=== PATIENT | female | born 1960 | race Caucasian/White ===

== ENCOUNTER 2017-07-25 07:44 | Emergency (ER) | payer OTHER, SELFPAY ==
[2017-07-25] MEDS ORDERED: Acetaminophen 325 MG Tab PO ONE (08:08)
--- NOTE | 2017-07-25 08:14 | EDM.PDOC ---
ED HPI GENERAL MEDICAL PROBLEM - General Chief Complaint: Head Injury Stated Complaint: HEAD INJURY/DUE TO FALL Time Seen by Provider: 07/25/17 08:01 Source of Information: Reports: Patient, RN Notes Reviewed - History of Present Illness INITIAL COMMENTS - FREE TEXT/NARRATIVE: 57-year-old female slipped on ice walking to work this morning about 1 hour ago. Her feet went out, she fell backwards striking the back of her head against the sidewalk. There was no LOC. She may have been dazed briefly. At this point she does have moderate headache, mild dizziness and very mild soreness of the TMJ area of her face that normally gives her trouble and away. She's had no nausea or vomiting. Slight neck stiffness. No chest back hip or other pain or injury from this incident. Headache Pain Score (Numeric/FACES): 7 - Related Data Allergies Allergy/AdvReac Type Severity Reaction Status Date / Time morphine Allergy Vomiting Verified 07/25/17 07:53 Home Meds: Home Meds Lamictal. 1 tab PO DAILY 07/25/17 [History] Lamictal. 1.5 tab PO BEDTIME 07/25/17 [History] ED ROS GENERAL - Review of Systems Review Of Systems: See Below Constitutional: Reports: No Symptoms HEENT: Reports: Other (She has an area of swelling posterior scalp). Denies: Ear Discharge, Vertigo, Vision Change Respiratory: Denies: Shortness of Breath Cardiovascular: Denies: Chest Pain GI/Abdominal: Denies: Abdominal Pain, Nausea, Vomiting Musculoskeletal: Denies: Neck Pain, Back Pain, Leg Pain, Joint Pain Skin: Reports: No Symptoms Neurological: Reports: Dizziness, Headache (Mild). Denies: Numbness (Mild/ moderate), Tingling, Trouble Speaking, Difficulty Walking, Weakness ED EXAM, HEAD INJURY - Physical Exam Exam: See Below General Appearance: Alert, No Apparent Distress Head: Scalp Swelling, Other (There is an area of mild swelling posterior scalp with very minimal localized tenderness). No: Scalp Lacerations, Scalp Abrasions , Woodward's Sign, Facial Swelling, Facial Tenderness Eyes: Bilateral Eye: PERRL Ears: Normal External Exam, Normal Canal Nose: Normal Inspection Throat/Mouth: Normal Inspection Respiratory: No Respiratory Distress, Lungs Clear, Normal Breath Sounds Cardiovascular: Regular Rate, Rhythm Back Exam: No: Paraspinal Tenderness, Vertebral Tenderness Extremities: Normal Inspection, Normal Range of Motion Neurologic: No Motor/Sensory Deficits, Normal Mood/Affect, Oriented x 3, Other ( [id number] testing normal) Skin: Normal Color, Warm/Dry Course - Vital Signs Last Recorded V/S: Last Vital Signs Temp 97.0 F 07/25/17 07:55 Pulse 71 07/25/17 07:55 Resp 16 07/25/17 07:55 BP 152/84 H 07/25/17 07:55 Pulse Ox 98 07/25/17 07:55 - Orders/Labs/Meds Orders: Active Orders 24 hr Category Date Time Status Acetaminophen [Tylenol] Med 07/25/17 08:08 Once 975 mg PO NOW ONE Medication Orders Acetaminophen (Tylenol) 975 mg PO NOW ONE Stop: 07/25/17 08:09 Meds: Medications Generic Name Dose Route Start Last Admin Trade Name Freq PRN Reason Stop Dose Admin Acetaminophen 975 mg 07/25/17 08:08 Tylenol PO 07/25/17 08:09 NOW ONE - Re-Assessments/Exams Free Text/Narrative Re-Assessment/Exam: 07/25/17 08:12 CT scan or x-rays not clinically indicated at this time Departure - Departure Time of Disposition: 08:12 Disposition: Home, Self-Care 01 Condition: Fair Clinical Impression: Concussion injury of brain - Discharge Information Referrals: PCP,None [Primary Care Provider] - Forms: ED Department Discharge, ED Return to Work/School Form Additional Instructions: The treatment for concussion is rest and time, off work today, no prolonged or severe exertional activity for about 1 week, increase activity slowly as tolerated. He should be well enough to return to work Thursday. You may alternate Tylenol and ibuprofen as needed for discomfort, return to ED if symptoms worsening in any way. - My Orders Last 24 Hours: My Active Orders 07/25/17 08:08 Acetaminophen [Tylenol] 975 mg PO NOW ONE - Assessment/Plan Last 24 Hours: My Active Orders 07/25/17 08:08 Acetaminophen [Tylenol] 975 mg PO NOW ONE
== END 2017-07-25 08:30 | disposition home or self-care (01) ==
LOC: JD.ED 07:44
DX: S06.0X0A Concussion without loss of consciousness, initial encounter (principal); Z79.899 Other long term (current) drug therapy; Z88.5 Allergy status to narcotic agent; W00.0XXA Fall on same level due to ice and snow, initial encounter; Y92.480 Sidewalk as the place of occurrence of the external cause
CPT/HCPCS: 99283; A9270

== ENCOUNTER 2018-03-03 10:39 | Day surgery (SDC) | payer BC ==
[~2018-03-03 10:39] MED LIST: Lactated Ringers 1,000 ML IV SCH; Lidocaine 1%/Sod Bicarbonate in NS 8.4% 1 ML Syringe IDERM PRN; Sodium Chloride 0.9% 10 ML Syringe FLUSH PRN
--- NOTE | 2018-03-03 12:00 | PCM.PREANE ---
Preanesthetic Assessment - Anesthesia/Transfusion/Family Hx Anesthesia History: Prior Anesthesia Without Reaction Family History of Anesthesia Reaction: No Transfusion History: No Prior Transfusion(s) - Review of Systems General: No Symptoms, Other (obesity) Pulmonary: No Symptoms Cardiovascular: No Symptoms Gastrointestinal: Other (GERD) Neurological: Seizure (epilepsy disorder, last seizure 6 years ago) Other: Reports: None - Physical Assessment NPO Status Date: 03/03/18 NPO Status Time: 10:00 Pulse: 59 O2 Sat by Pulse Oximetry: 98 Respiratory Rate: 20 Blood Pressure: 113/63 Vital Signs: Last Vital Signs Temp 36.6 C 03/03/18 10:55 Pulse 59 L 03/03/18 10:55 Resp 20 03/03/18 10:55 BP 113/63 03/03/18 10:55 Pulse Ox 98 03/03/18 10:55 Height: 1.57 m Weight: 95.254 kg ASA Class: 3 Mental Status: Alert & Oriented x3 Airway Class: Mallampati = 2 Dentition: Reports: Normal Dentition Thyro-Mental Finger Breadths: 3 Mouth Opening Finger Breadths: 3 ROM/Head Extension: Full Lungs: Clear to Auscultation, Normal Respiratory Effort Cardiovascular: Regular Rate, Regular Rhythm - Allergies Allergies/Adverse Reactions: Allergies Allergy/AdvReac Type Severity Reaction Status Date / Time morphine AdvReac Vomiting Verified 03/03/18 11:41 - Blood Blood Available: No Product(s) Available: None - Anesthesia Plan Pre-Op Medication Ordered: None - Acknowledgements Anesthesia Type Planned: MAC Pt an Appropriate Candidate for the Planned Anesthesia: Yes Alternatives and Risks of Anesthesia Discussed w Pt/Guardian: Yes Pt/Guardian Understands and Agrees with Anesthesia Plan: Yes PreAnesthesia Questionnaire Neurological History: Reports: Seizure - SUBSTANCE USE Smoking Status *Q: Never Smoker Recreational Drug Use History: No - HOME MEDS Home Medications: Home Meds Cholecalciferol (Vitamin D3) [Vitamin D3] 5,000 unit PO DAILY 03/02/18 [History] lamoTRIgine 200 mg PO QAM 03/02/18 [History] lamoTRIgine 300 mg PO QPM 03/02/18 [History] - CURRENT (IN HOUSE) MEDS Current Meds: Current Medications Lactated Ringer's (Ringers, Lactated) 1,000 mls @ 125 mls/hr IV ASDIRECTED SHA Stop: 03/03/18 23:00 Last Admin: 03/03/18 11:20 Dose: 125 mls/hr Lidocaine/Sodium Bicarbonate (Buffered Lidocaine 1% In Ns 8.4%) 0.25 ml IDERM ONETIME PRN PRN Reason: Prior to IV Start Stop: 03/03/18 18:00 Last Admin: 03/03/18 11:19 Dose: 0.25 ml Sodium Chloride (Saline Flush) 10 ml FLUSH ASDIRECTED PRN PRN Reason: Keep Vein Open Stop: 03/03/18 18:00
[2018-03-03] MEDS ORDERED: Propofol 200 MG/20 ML SDV ONE ×2 (12:43→13:37)
[2018-03-03] MEDS ORDERED: Lidocaine 1% 4 ML ONE (12:43)
[2018-03-03] MEDS ORDERED: fentaNYL 100 MCG/2 ML SDV ONE (12:44)
[2018-03-03] MEDS ORDERED: Lactated Ringers 1,000 ML ONE (13:11)
--- NOTE | 2018-03-03 13:49 | PCM.OPNOTE ---
- General Post-Op/Procedure Note Date of Surgery/Procedure: 03/03/18 Operative Procedure(s): colonoscopy with biopsy Findings: sigmoid colon polyp Pre Op Diagnosis: screening colonoscopy, average risk Post-Op Diagnosis: screening colonoscopy, average risk Anesthesia Technique: MAC Primary Surgeon: Wilton Chacon Anesthesia Provider: Roxann Rachel Pathology: sigmoid colon polyp Complications: None Condition: Good Free Text/Narrative:: Indications for surgery: The patient is 58 yo female, had a colonoscopy in 2004 , was told to repeat in 10 years. She is due for a repeat colonoscopy. The patient was consented for colonoscopy with possible biopsy. Indications, risks, and benefits were discussed with the patient in detail. Description of procedure: After surgical consent was verified, the patient was brought to the main OR. A surgical time-out was performed to verify proper patient and proper procedure. Anesthesia performed monitored anesthesia care. A digital rectal exam was performed, which was normal. The colonoscope was inserted into the anus and advanced through the colon to the cecum. Location of the cecum was confirmed by presence of the appendiceal orifice and by presence of the ileocecal valve. The scope was then withdrawn, with inspection of the colonic mucosa. Retroflexion was performed in the rectum. There was a 6 mm semi-pendunculated polyp in the sigmoid colon, removed by cold forceps polypectomy. The remainder of the colon and rectum was normal. Withdrawal time was 7 minutes , including time spent performing polypectomy. Blood loss was minimal. Prep was good. The patient tolerated the procedure well, was brought out of anesthesia, and transported to the PACU in stable condition. Wilton Chacon M.D., F.A.C.S. General Surgery Pager: [phone]
--- NOTE | 2018-03-03 13:51 | PCM48HPAN ---
Post Anesthesia Note - EVALUATION WITHIN 48HRS OF ANESTHETIC Vital Signs in Normal Range: Yes Patient Participated in Evaluation: Yes Respiratory Function Stable: Yes Airway Patent: Yes Cardiovascular Function Stable: Yes Hydration Status Stable: Yes Pain Control Satisfactory: Yes Nausea and Vomiting Control Satisfactory: Yes Mental Status Recovered: Yes Pulse Rate: 59 SaO2: 97 Resp Rate: 20 Temperature: 36.9 C Blood Pressure: 113/63 Pulse Rate: 60
== END 2018-03-03 14:26 | disposition home or self-care (01) ==
LOC: JD.SDS 10:39
PROVIDERS: ATTEND Student in an Organized Health Care Education/Training Program
DX: Z12.11 Encounter for screening for malignant neoplasm of colon (principal); K63.5 Polyp of colon; K21.9 Gastro-esophageal reflux disease without esophagitis; E55.9 Vitamin D deficiency, unspecified; Z88.5 Allergy status to narcotic agent; Z79.899 Other long term (current) drug therapy; Z98.890 Other specified postprocedural states; Z86.010 Personal history of colon polyps
CPT/HCPCS: 45380; J2704; J3010; J7120; 00811; J2001

== ENCOUNTER 2020-02-11 01:58 | Emergency (ER) | payer BC ==
[2020-02-11] MEDS ORDERED: Sodium Chloride 0.9% 1,000 ML IV SCH (02:15)
--- NOTE | 2020-02-11 02:41 | EDM.PDOC ---
ED HPI GENERAL MEDICAL PROBLEM - General Chief Complaint: Neurological Problem Stated Complaint: eufemia ambulance Time Seen by Provider: 02/11/20 02:20 Source of Information: Reports: Patient History Limitations: Reports: No Limitations - History of Present Illness INITIAL COMMENTS - FREE TEXT/NARRATIVE: This is a 60-year-old female. Last night she had an episode of the room spinning and dizziness that lasted just a short period of time. Yesterday during the day she did not seem to have a problem and then tonight it seemed to occur again wound 8:52 PM. She states when she gets up she is very incoordinated and staggers into the wall and attempted to sit down and nearly missed the chair. She complains of the room spinning about. She is also been having sweating spells and nausea and loss of appetite. Called the ambulance tonight and she comes to the ER evaluation. She has a history of seizures and she is on Lamictal. She says as long she stays on the Lamictal she does not have any seizures. When I explained to her that her symptoms of dizziness sweating nausea incoordination loss of appetite and headache can all be related to adverse effects of the Lamictal. She says she might of taken an extra dose but she was not certain exactly when she might of done this. No recent illnesses no colds no cough no congestion. - Related Data Allergies Allergy/AdvReac Type Severity Reaction Status Date / Time morphine AdvReac Severe Vomiting Verified 02/11/20 02:02 Home Meds: Home Meds lamoTRIgine 200 mg PO QAM 03/02/18 [History] lamoTRIgine 300 mg PO QPM 03/02/18 [History] Meclizine [Antivert] 25 mg PO Q6H PRN #20 tab 02/11/20 [Rx] cephALEXin [Keflex] 500 mg PO Q8H #21 cap 02/11/20 [Rx] Past Medical History Neurological History: Reports: Seizure - Past Surgical History Neurological Surgical History: Reports: Other (See Below) Other Neurological Surgeries/Procedures: frontal lobectomy Social & Family History - Tobacco Use Smoking Status *Q: Never Smoker - Caffeine Use Caffeine Use: Reports: Soda, Tea - Recreational Drug Use Recreational Drug Use: No ED ROS GENERAL - Review of Systems Review Of Systems: See Below Constitutional: Denies: Fever, Chills HEENT: Reports: No Symptoms Respiratory: Denies: Shortness of Breath, Cough Cardiovascular: Reports: No Symptoms Endocrine: Reports: No Symptoms GI/Abdominal: Reports: Nausea. Denies: Abdominal Pain, Diarrhea, Vomiting : Reports: No Symptoms Musculoskeletal: Reports: No Symptoms Skin: Reports: No Symptoms Neurological: Reports: Dizziness, Headache, Difficulty Walking, Other (Staggering) Psychiatric: Reports: No Symptoms Hematologic/Lymphatic: Reports: No Symptoms ED EXAM, NEURO - Physical Exam Exam: See Below Exam Limited By: No Limitations General Appearance: Alert, WD/WN, No Apparent Distress Eye Exam: Bilateral Eye: Nystagmus (Very faint nystagmus is noted) Ears: Normal External Exam Nose: Normal Inspection Throat/Mouth: Normal Inspection, Normal Lips, Normal Voice, No Airway Compromise Head Exam: Normocephalic, Other (When she changes the position of her head such as sitting up or lying down or turning left or right she has vertigo with the room spins) Neck: Supple. No: Carotid Bruit Respiratory/Chest: No Respiratory Distress, Lungs Clear, Normal Breath Sounds Cardiovascular: Regular Rate, Rhythm, No Murmur GI/Abdominal: Soft Neurological: Alert, Normal Mood/Affect, CN II-XII Intact, Oriented x 3 Back Exam: Full Range of Motion Extremities: Normal Inspection, Normal Range of Motion Psychiatric: Normal Affect, Normal Mood Skin Exam: Warm, Dry Course - Vital Signs Last Recorded V/S: Last Vital Signs Temp 98.7 F 02/11/20 01:59 Pulse 74 02/11/20 01:59 Resp 16 02/11/20 01:59 BP 134/68 02/11/20 01:59 Pulse Ox 97 02/11/20 01:59 - Orders/Labs/Meds Orders: Active Orders 24 hr Category Date Time Status Head wo Cont [CT] Stat Exams 02/11/20 02:14 Taken LAMOTRIGINE, SERUM [REF] Stat Lab 02/11/20 02:08 Received Sodium Chloride 0.9% [Normal Saline] 1,000 ml Med 02/11/20 02:15 Active IV ASDIRECTED cefTRIAXone [Rocephin] 1 gm Med 02/11/20 04:27 Active Sodium Chloride 0.9% [Normal Saline] 100 ml IV ONETIME EKG 12 Lead [EK] Stat Ther 02/11/20 02:25 Ordered Medication Orders Sodium Chloride (Normal Saline) 1,000 mls @ 1,000 mls/hr IV ASDIRECTED SHA Last Admin: 02/11/20 02:32 Dose: 1,000 mls/hr Documented by: TYRONE Ceftriaxone Sodium 1 gm/ (Sodium Chloride) 100 mls @ 200 mls/hr IV ONETIME ONE Stop: 02/11/20 04:56 Labs: Laboratory Tests 02/11/20 02/11/20 02/11/20 Range/Units 02:08 02:08 03:24 WBC 12.73 H (3.98-10.04) K/mm3 RBC 4.50 (3.98-5.22) M/mm3 Hgb 13.4 (11.2-15.7) gm/dl Hct 41.5 (34.1-44.9) % MCV 92.2 (79.4-94.8) fl MCH 29.8 (25.6-32.2) pg MCHC 32.3 (32.2-35.5) g/dl RDW Std Deviation 45.7 (36.4-46.3) fL Plt Count 192 (182-369) K/mm3 MPV 9.0 L (9.4-12.3) fl Neut % (Auto) 77.9 H (34.0-71.1) % Lymph % (Auto) 10.9 L (19.3-51.7) % [place] % (Auto) 10.1 (4.7-12.5) % Eos % (Auto) 0.5 L (0.7-5.8) Baso % (Auto) 0.3 (0.1-1.2) % Neut # (Auto) 9.91 H (1.56-6.13) K/mm3 Lymph # (Auto) 1.39 (1.18-3.74) K/mm3 [place] # (Auto) 1.29 H (0.24-0.36) K/mm3 Eos # (Auto) 0.06 (0.04-0.36) K/mm3 Baso # (Auto) 0.04 (0.01-0.08) K/mm3 Manual Slide Review Abnormal smear Sodium 137 (136-145) mEq/L Potassium 3.6 (3.5-5.1) mEq/L Chloride 102 (98-107) mEq/L Carbon Dioxide 25 (21-32) mEq/L Anion Gap 13.6 (5-15) BUN 14 (7-18) mg/dL Creatinine 0.8 (0.55-1.02) mg/dL Est Cr Clr Drug Dosing 60.31 mL/min Estimated GFR (MDRD) > 60 (>60) mL/min BUN/Creatinine Ratio 17.5 (14-18) Glucose 154 H (80-115) mg/dL Calcium 9.0 (8.5-10.1) mg/dL Total Bilirubin 0.7 (0.2-1.0) mg/dL AST 27 (15-37) U/L ALT 54 (14-59) U/L Alkaline Phosphatase 93 (46-116) U/L Total Protein 7.2 (6.4-8.2) g/dl Albumin 3.3 L (3.4-5.0) g/dl Globulin 3.9 gm/dL Albumin/Globulin Ratio 0.9 L (1-2) Urine Color Yellow (Yellow) Urine Appearance Cloudy H (Clear) Urine pH 6.0 (5.0-8.0) Ur Specific [place] 1.015 (1.005-1.030) Urine Protein 1+ H (Negative) Urine Glucose (UA) Negative (Negative) Urine Ketones 2+ H (Negative) Urine Occult Blood 2+ H (Negative) Urine Nitrite Negative (Negative) Urine Bilirubin Negative (Negative) Urine Urobilinogen 0.2 (0.2-1.0) Ur Leukocyte Esterase 1+ H (Negative) Urine RBC 5-10 H (0-5) /hpf Urine WBC 20-30 H (0-5) /hpf Urine WBC Clumps Moderate (NOT SEEN) /hpf Ur Squamous Epith Cells 0-5 (0-5) /hpf Urine Bacteria Many H (FEW) /hpf Urine Mucus Rare (FEW) /hpf Meds: Medications Generic Name Dose Route Start Last Admin Trade Name Freq PRN Reason Stop Dose Admin Sodium Chloride 1,000 mls @ 1,000 mls/hr 02/11/20 02:15 02/11/20 02:32 Normal Saline IV 1,000 mls/hr ASDIRECTED SHA Administration Ceftriaxone Sodium 1 gm/ 100 mls @ 200 mls/hr 02/11/20 04:27 Sodium Chloride IV 02/11/20 04:56 ONETIME ONE Discontinued Medications Generic Name Dose Route Start Last Admin Trade Name John PRN Reason Stop Dose Admin Diphenhydramine HCl 25 mg 02/11/20 03:09 02/11/20 03:24 Benadryl IVPUSH 02/11/20 03:10 25 mg ONETIME ONE Administration Lorazepam 0.5 mg 02/11/20 03:09 02/11/20 03:25 Ativan IVPUSH 02/11/20 03:10 0.5 mg ONETIME ONE Administration - Radiology Interpretation Free Text/Narrative:: CT scan of the head does not show any acute intracranial findings. - Re-Assessments/Exams Free Text/Narrative Re-Assessment/Exam: 02/11/20 04:29 I spoke to the patient regarding the urinary tract infection. The rest of her blood work looks within normal limits. Will not get the Lamictal level back for the next couple of days. She is to follow-up with her family doctor this coming week so they can recheck that Lamictal level and see what it is to see if this might be causing her symptoms. The patient has been up and down to the commode several times without assistance and seems to be feeling better. Departure - Departure Time of Disposition: 04:29 Disposition: Home, Self-Care 01 Condition: Fair Clinical Impression: Vertigo, Nausea, Lack of appetite, Nystagmus Urinary tract infection Qualifiers: Urinary tract infection type: site unspecified Hematuria presence: without hematuria Qualified Code(s): N39.0 - Urinary tract infection, site not specified - Discharge Information *PRESCRIPTION DRUG MONITORING PROGRAM REVIEWED*: Not Applicable *COPY OF PRESCRIPTION DRUG MONITORING REPORT IN PATIENT SIA: Not Applicable Prescriptions: Meclizine [Antivert] 25 mg PO Q6H PRN #20 tab PRN Reason: Dizziness cephALEXin [Keflex] 500 mg PO Q8H #21 cap Instructions: Urinary Tract Infection, Adult, [id number], Dizziness, Easy -to-Read Referrals: Livia Hernandez MD [Physician] - Forms: ED Department Discharge, ED Return to Work/School Form Additional Instructions: The Antivert as needed for the dizziness, take the Keflex faithfully 3 times a day for the urinary tract infection, drink lots of fluids, when you go to get up sit on the edge of the bed for a moment to make sure your head is not spinning and then stand but hang onto something to make sure your head is not spinning and once everything is stable start walking, follow-up with your family doctor this coming week so they can check that Lamictal level to make sure it is not too elevated and causing your side effects, return to the ER if needed Sepsis Event Note (ED) - Evaluation Sepsis Screening Result: No Definite Risk - Focused Exam Vital Signs: Vital Signs Temp Pulse Resp BP Pulse Ox 02/11/20 01:59 98.7 F 74 16 134/68 97 - My Orders Last 24 Hours: My Active Orders 02/11/20 02:08 LAMOTRIGINE, SERUM [REF] Stat 02/11/20 02:14 Head wo Cont [CT] Stat 02/11/20 02:15 Sodium Chloride 0.9% [Normal Saline] 1,000 ml IV ASDIRECTED 02/11/20 02:25 EKG 12 Lead [EK] Stat 02/11/20 04:27 cefTRIAXone [Rocephin] 1 gm Sodium Chloride 0.9% [Normal Saline] 100 ml IV ONETIME - Assessment/Plan Last 24 Hours: My Active Orders 02/11/20 02:08 LAMOTRIGINE, SERUM [REF] Stat 02/11/20 02:14 Head wo Cont [CT] Stat 02/11/20 02:15 Sodium Chloride 0.9% [Normal Saline] 1,000 ml IV ASDIRECTED 02/11/20 02:25 EKG 12 Lead [EK] Stat 02/11/20 04:27 cefTRIAXone [Rocephin] 1 gm Sodium Chloride 0.9% [Normal Saline] 100 ml IV ONETIME
[2020-02-11] MEDS ORDERED: LORazepam 2 MG/ML SDV IVPUSH ONE (03:09)
[2020-02-11] MEDS ORDERED: diphenhydrAMINE 50 MG/ML SDV IVPUSH ONE (03:09)
[2020-02-11] MEDS ORDERED: cefTRIAXone 1 GM in Sodium Chloride 0.9% 100 ML IV ONE (04:27)
--- NOTE | 2020-02-11 09:18 | CT ---
Head CT Technique: Multiple axial sections through the brain were obtained. Intravenous contrast was not utilized. Comparison: No prior intracranial imaging is available. Findings: Low-density area noted within the inferior right frontal region. Adjacent craniotomy is seen in this area. No other abnormal parenchymal densities are seen. No evidence of intracranial hemorrhage. No midline shift or mass-effect is appreciated. Hyperdense vertebral artery is seen most likely due to hemoconcentration from dehydration. Bone window settings were reviewed which shows previous craniotomy and bur hole formation. No acute calvarial abnormality is appreciated. Visualized mastoid sinuses and paranasal sinuses show nothing acute. Impression: 1. 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 Please correlate as to etiology. This finding appears to be chronic. 2. No acute intracranial abnormality is appreciated. 3. Slightly hyperdense vertebral artery believed to be normal variant as described above. Note: If patient's symptoms warrant further evaluation, MRI study could be considered. Diagnostic code #2 This report was dictated in MDT I agree with preliminary report from [facility], finalized on 02/11/20, 3:55 AM Central Daylight Time
== END 2020-02-11 05:16 | disposition home or self-care (01) ==
LOC: JD.ED 01:58
DX: N39.0 Urinary tract infection, site not specified (principal); R42 Dizziness and giddiness; R11.0 Nausea; R63.0 Anorexia; H55.00 Unspecified nystagmus; Z88.5 Allergy status to narcotic agent; Z79.899 Other long term (current) drug therapy
CPT/HCPCS: 70450; 80053; 80175; 81001; 85025; 93005; 96361; 96365; 96375; 99285; J0696; J1200; J2060; J7030; J7050; 36415; 93010; 99284

== ENCOUNTER 2020-02-18 07:26 | Emergency (ER) | payer BC ==
--- NOTE | 2020-02-18 07:54 | EDM.PDOC ---
ED HPI GENERAL MEDICAL PROBLEM - General Chief Complaint: Neurological Problem Stated Complaint: SEIZURES/HX OF SEIZURE/MEDS NOT HELPING Time Seen by Provider: 02/18/20 07:51 Source of Information: Reports: Patient History Limitations: Reports: No Limitations - History of Present Illness INITIAL COMMENTS - FREE TEXT/NARRATIVE: 60-year-old female presents to the ED with increased petit mall seizures this morning. 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 She states in high school she could have up to 22 seizures a day. Since the surgery was carried out she has petit mall seizures lasting anywhere from 10 to 20 seconds. This usually means staring off into space feeling scared and tremulous. This morning she is already had 5 breakthrough seizures. She is on Lamictal 200 mg in the morning and 300 mg in the p.m. She has not missed any doses of her medication. No recent falls or closed head injuries. She was started on meclizine 25 mg 3 times daily a week ago for vertigo-like symptoms which may have lowered his seizure threshold. However she is not had any breakthrough seizures in the week that she is been on the medication. Denies any headache at this point time. Otherwise feels pretty well back to her normal self. She did have a urinary tract infection a week ago and is completed antibiotics in this regard. She indicates that in about 2010 her Lamictal was increased from 200 twice daily to 200 in the morning and 300 mg in the evening. Onset: Today Onset Date: 02/18/20 (Claims to have had 5 petit mall seizures this morning.) Duration: Other (Seizures last seconds usually less than 10 to 15 seconds.) Location: Reports: Other (Petit mall seizures which involve staring off into space feeling scared and frightened and tremulous.) Quality: Reports: Other Severity: Moderate (As above) Improves with: Reports: None Worsens with: Reports: None Context: Denies: Activity, Exercise, Lifting, Sick Contact, Trauma, Other Associated Symptoms: Denies: No Other Symptoms, Confusion, Chest Pain, Cough, cough w sputum, Diaphoresis, Fever/Chills, Headaches, Loss of Appetite, Malaise, Nausea/Vomiting, Seizure, Shortness of Breath, Syncope, Weakness, Other 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) (She did take her normal medication this morning.) - Related Data Allergies Allergy/AdvReac Type Severity Reaction Status Date / Time morphine AdvReac Severe Vomiting Verified 02/18/20 07:42 Home Meds: Home Meds lamoTRIgine 200 mg PO QAM 03/02/18 [History] lamoTRIgine 300 mg PO QPM 03/02/18 [History] Meclizine [Antivert] 25 mg PO Q6H PRN #20 tab 02/11/20 [Rx] cephALEXin [Keflex] 500 mg PO Q8H #21 cap 02/11/20 [Rx] lamoTRIgine [Lamictal] 100 mg PO BID #15 tablet 02/18/20 [Rx] Past Medical History Neurological History: Reports: Seizure, Other (See Below) (Patient has a previous left frontal lobectomy carried out due to seizure mariana coming from the frontal lobe. 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[employer]) ED [facility] GENERAL - Review of Systems Review Of Systems: See Below Constitutional: Denies: Fever, Chills, Malaise, Weakness, Fatigue, Decreased Appetite, Weight Loss HEENT: Reports: Glasses Respiratory: Reports: No Symptoms Cardiovascular: Reports: No Symptoms Endocrine: Reports: No Symptoms GI/Abdominal: Reports: No Symptoms : Reports: Other (Feels her urinary tract symptoms have resolved with medication.) Musculoskeletal: Reports: No Symptoms Skin: Reports: No Symptoms Neurological: Reports: Other (Recurrent petit mall seizures.) Psychiatric: Reports: Anxiety Hematologic/Lymphatic: Reports: No Symptoms - Physical Exam Exam: See Below Exam Limited By: No Limitations General Appearance: Alert, WD/WN, Anxious, Other (Mildly anxious. Temperature is 36.1 with a heart rate of 81 respiratory 16 BP 156/79 pulse ox 97% room air) Eye Exam: Bilateral Eye: Normal Inspection, PERRL Throat/Mouth: Normal Inspection, Normal Lips, Normal Oropharynx, Other Head Exam: Atraumatic, Normocephalic Neck: Normal Inspection, Supple, Non-Tender, Full Range of Motion. No: Carotid Bruit, Lymphadenopathy (L), Lymphadenopathy (R) Respiratory/Chest: No Respiratory Distress, Lungs Clear, Normal Breath Sounds, No Accessory Muscle Use, Chest Non-Tender Neuro Exam (Abbreviated): Alert, Oriented, CN II-XII Intact, Normal Cognition, Normal Gait DTR: 1+: Achilles (R), Achilles (L), 2+: Bicep (R), Bicep (L), Patella (R), Patella (L) Back Exam: Normal Inspection, Full Range of Motion Extremities: Normal Inspection, Normal Range of Motion, Non-Tender Psychiatric: Normal Affect, Anxious Skin Exam: Warm, Dry (Mildly anxious.), Intact, Normal Color, No Rash Course - Vital Signs Last Recorded V/S: Last Vital Signs Temp 36.1 C 02/18/20 07:38 Pulse 81 02/18/20 07:38 Resp 16 02/18/20 07:38 BP 156/79 H 02/18/20 07:38 Pulse Ox 97 02/18/20 07:38 - Orders/Labs/Meds Orders: Active Orders 24 hr Category Date Time Status LAMOTRIGINE, SERUM [REF] Stat Lab 02/18/20 08:24 Received lamoTRIgine Med 02/18/20 09:19 Once 100 mg PO ONETIME ONE Labs: Laboratory Tests 02/18/20 02/18/20 02/18/20 Range/Units 08:24 08:24 08:24 WBC 5.46 (3.98-10.04) K/mm3 RBC 4.81 (3.98-5.22) M/mm3 Hgb 14.3 (11.2-15.7) gm/dl Hct 44.3 (34.1-44.9) % MCV 92.1 (79.4-94.8) fl MCH 29.7 (25.6-32.2) pg MCHC 32.3 (32.2-35.5) g/dl RDW Std Deviation 44.6 (36.4-46.3) fL Plt Count 273 D (182-369) K/mm3 MPV 8.9 L (9.4-12.3) fl Neut % (Auto) 69.6 (34.0-71.1) % Lymph % (Auto) 19.8 (19.3-51.7) % [place] % (Auto) 4.9 (4.7-12.5) % Eos % (Auto) 3.7 (0.7-5.8) Baso % (Auto) 1.5 H (0.1-1.2) % Neut # (Auto) 3.80 (1.56-6.13) K/mm3 Lymph # (Auto) 1.08 L (1.18-3.74) K/mm3 [place] # (Auto) 0.27 (0.24-0.36) K/mm3 Eos # (Auto) 0.20 (0.04-0.36) K/mm3 Baso # (Auto) 0.08 (0.01-0.08) K/mm3 Sodium 139 (136-145) mEq/L Potassium 3.9 (3.5-5.1) mEq/L Chloride 104 (98-107) mEq/L Carbon Dioxide 28 (21-32) mEq/L Anion Gap 10.9 (5-15) BUN 15 (7-18) mg/dL Creatinine 0.9 (0.55-1.02) mg/dL Est Cr Clr Drug Dosing 53.61 mL/min Estimated GFR (MDRD) > 60 (>60) mL/min BUN/Creatinine Ratio 16.7 (14-18) Glucose 133 H (80-115) mg/dL Calcium 8.9 (8.5-10.1) mg/dL Magnesium 2.1 (1.8-2.4) mg/dl Total Bilirubin 0.3 (0.2-1.0) mg/dL AST 71 H (15-37) U/L ALT 111 H (14-59) U/L Alkaline Phosphatase 107 (46-116) U/L Total Protein 7.6 (6.4-8.2) g/dl Albumin 3.3 L (3.4-5.0) g/dl Globulin 4.3 gm/dL Albumin/Globulin Ratio 0.8 L (1-2) TSH 3rd Generation 2.055 (0.358-3.74) uIU/mL Urine Color (Yellow) Urine Appearance (Clear) Urine pH (5.0-8.0) Ur Specific [place] (1.005-1.030) Urine Protein (Negative) Urine Glucose (UA) (Negative) Urine Ketones (Negative) Urine Occult Blood (Negative) Urine Nitrite (Negative) Urine Bilirubin (Negative) Urine Urobilinogen (0.2-1.0) Ur Leukocyte Esterase (Negative) Urine RBC (0-5) /hpf Urine WBC (0-5) /hpf Ur Squamous Epith Cells (0-5) /hpf Urine Bacteria (FEW) /hpf Urine Mucus (FEW) /hpf 02/18/20 Range/Units 08:30 WBC (3.98-10.04) K/mm3 RBC (3.98-5.22) M/mm3 Hgb (11.2-15.7) gm/dl Hct (34.1-44.9) % MCV (79.4-94.8) fl MCH (25.6-32.2) pg MCHC (32.2-35.5) g/dl RDW Std Deviation (36.4-46.3) fL Plt Count (182-369) K/mm3 MPV (9.4-12.3) fl Neut % (Auto) (34.0-71.1) % Lymph % (Auto) (19.3-51.7) % [place] % (Auto) (4.7-12.5) % Eos % (Auto) (0.7-5.8) Baso % (Auto) (0.1-1.2) % Neut # (Auto) (1.56-6.13) K/mm3 Lymph # (Auto) (1.18-3.74) K/mm3 [place] # (Auto) (0.24-0.36) K/mm3 Eos # (Auto) (0.04-0.36) K/mm3 Baso # (Auto) (0.01-0.08) K/mm3 Sodium (136-145) mEq/L Potassium (3.5-5.1) mEq/L Chloride (98-107) mEq/L Carbon Dioxide (21-32) mEq/L Anion Gap (5-15) BUN (7-18) mg/dL Creatinine (0.55-1.02) mg/dL Est Cr Clr Drug Dosing mL/min Estimated GFR (MDRD) (>60) mL/min BUN/Creatinine Ratio (14-18) Glucose (80-115) mg/dL Calcium (8.5-10.1) mg/dL Magnesium (1.8-2.4) mg/dl Total Bilirubin (0.2-1.0) mg/dL AST (15-37) U/L ALT (14-59) U/L Alkaline Phosphatase (46-116) U/L Total Protein (6.4-8.2) g/dl Albumin (3.4-5.0) g/dl Globulin gm/dL Albumin/Globulin Ratio (1-2) TSH 3rd Generation (0.358-3.74) uIU/mL Urine Color Light yellow (Yellow) Urine Appearance Clear (Clear) Urine pH 7.0 (5.0-8.0) Ur Specific [place] 1.015 (1.005-1.030) Urine Protein Negative (Negative) Urine Glucose (UA) Negative (Negative) Urine Ketones Negative (Negative) Urine Occult Blood Negative (Negative) Urine Nitrite Negative (Negative) Urine Bilirubin Negative (Negative) Urine Urobilinogen 0.2 (0.2-1.0) Ur Leukocyte Esterase Negative (Negative) Urine RBC 0-5 (0-5) /hpf Urine WBC 0-5 (0-5) /hpf Ur Squamous Epith Cells 0-5 (0-5) /hpf Urine Bacteria Few (FEW) /hpf Urine Mucus Rare (FEW) /hpf - Radiology Interpretation Free Text/Narrative:: 60-year-old female presents to the ED with breakthrough petit mall seizures x5 this morning. She has a history of petit mall seizures since having a left frontal lobectomy carried out in 2006 in [place]. 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 She states that she would have up to 22 seizures a day while in high school. Since surgery she has had very few seizures. She tends to have petit mall seizures which means staring off into space feeling very scared and tremulous with no loss of consciousness. These usually last 10 to 15 seconds. Unfortunately she has had 5 breakthrough petit mal seizure this morning which is making it difficult for her to try and go to work. He is on fairly high doses of Lamictal 200 mg in the morning and 300 mg in the evening. Plan will be to have routine labs performed. Then discussed case with neurologist and see if there is a alternative treatment. - Re-Assessments/Exams Free Text/Narrative Re-Assessment/Exam: 02/18/20 08:[address] Hernandez neurologist at [facility] in [place] and he agrees with that she is not toxic or showing any toxic signs from current dosage of Lamictal it may be worth a try to increase it to 300 mg twice daily. I have sent out her Lamictal level for testing but it is a reference drug and will likely be 3 to 4 days before we see an answer. Await her lab tests at present time. 02/18/20 08:50 White count is 5.46 with auto differential showing 670% neutrophils. Hemoglobin is 14.3 with hematocrit of 44.3. Platelet counts 273,000. Urinalysis shows it to be clear with no signs of infection. 02/18/20 09:14 Odium 139 with a potassium of 3.9. Chloride 104 with a bicarb of 28. Anion gap is 10.9. BUN is 15 with a creatinine of 0.9. GFR is greater than 60. Glucose is 133 calcium is 8.9 magnesium is 2.1 total bilirubin is 0.3 AST is 71 with an ALT of 111. Alk phos stays normal at 107. Total protein is 7.6 with an albumin fraction slightly low at 3.3. TSH is 2.055 which is in the normal range. 02/18/20 09:19 I have discussed the patient's lab results with her. Nothing untoward was identified and low back laboratory testing. Plan will be to increase her Lamictal to 300 mg in the morning and 300 mg in the evening. Typically she takes 1 100 mg tablet with a 200 mg tablet so as not to have to break them in half. I will therefore write a prescription for the 100 mg tablets x10 until we see what her reference Lamictal level is and can make suitable adjustments based on that. Patient will be given a note to excuse her from work today tentatively she may return to work tomorrow Departure - Departure Time of Disposition: 09:20 Disposition: Home, Self-Care 01 Condition: Fair Clinical Impression: Breakthrough seizure, Petit mal seizure status - Discharge Information *PRESCRIPTION DRUG MONITORING PROGRAM REVIEWED*: Not Applicable *COPY OF PRESCRIPTION DRUG MONITORING REPORT IN PATIENT SIA: Not Applicable Prescriptions: lamoTRIgine [Lamictal] 100 mg PO BID #15 tablet Referrals: Livia Hernandez MD [Primary Care Provider] - Forms: ED Department Discharge, ED Return to Work/School Form Additional Instructions: Evaluation in the emergency room this morning in regards to breakthrough petit mall seizures x5 already this morning. No recent changes in antiseizure medication dosage. Recent illness with vertigo symptoms and I would suggest no further use of meclizine in case it is interacting with current antiseizure medication. It is the suggestion of Dr. Hernandez neurologist at [facility] to increase your current Lamictal dosage to 300 mg twice daily. This will need an extra 100 mg dose in the morning. First dose was given in the ED today. Prescription written for 10 tablets of Lamictal 100 mg dosage. Your current Lamictal level in your bloodstream was sent out for evaluation and should be back on Thursday or Thursday next week which will help us decide on appropriate dosing of this medication since you are already on higher normal doses of Lamictal. Just calling us Dr. Livia Hernandez on Thursday or next week as she should obtain the levels of the Lamictal send out levels. Sepsis Event Note (ED) - Evaluation Sepsis Screening Result: No Definite Risk - Focused Exam Vital Signs: Vital Signs Temp Pulse Resp BP Pulse Ox 02/18/20 07:38 36.1 C 81 16 156/79 H 97 - My Orders Last 24 Hours: My Active Orders 02/18/20 08:24 LAMOTRIGINE, SERUM [REF] Stat 02/18/20 09:19 lamoTRIgine 100 mg PO ONETIME ONE - Assessment/Plan Last 24 Hours: My Active Orders 02/18/20 08:24 LAMOTRIGINE, SERUM [REF] Stat 02/18/20 09:19 lamoTRIgine 100 mg PO ONETIME ONE
[2020-02-18] MEDS ORDERED: lamoTRIgine 100 MG Tab PO ONE (09:19)
[2020-02-18] MEDS ORDERED: lamoTRIgine 100 MG Tab PO STA (09:36)
== END 2020-02-18 09:45 | disposition home or self-care (01) ==
LOC: JD.ED 07:26
DX: G40.A09 Absence epileptic syndrome, not intractable, without status epilepticus (principal); Z88.5 Allergy status to narcotic agent; Z79.899 Other long term (current) drug therapy
CPT/HCPCS: 80053; 80175; 81001; 83735; 84443; 85025; 99284; A9270; 36415

== ENCOUNTER 2021-04-15 21:26 | Emergency (ER) | payer OTHER ==
[2021-04-15] MEDS ORDERED: Ondansetron 4 MG/2 ML SDV IVPUSH ONE (22:07)
[2021-04-15] MEDS ORDERED: Lactated Ringers 1,000 ML IV ONE (22:10)
--- NOTE | 2021-04-15 22:13 | EDM.PDOC ---
ED HPI GENERAL MEDICAL PROBLEM - General Chief Complaint: Neurological Problem Stated Complaint: SEIZURE Time Seen by Provider: 04/15/21 22:00 Source of Information: Reports: Patient History Limitations: Reports: No Limitations - History of Present Illness INITIAL COMMENTS - FREE TEXT/NARRATIVE: Patient is a 61-year-old female with a past medical history of seizure disorder presenting with chief complaint of numerous seizures throughout the day. Patient states she has had a cold for the past few days and been using Sudafed. She states she thinks this has interacted with her Lamictal leading her to having more seizures. She states she stopped the Sudafed 2 days ago but today has noticed numerous seizures throughout the day. She describes them as twitching in her head last for just a few seconds. She states the last time this happened was in February 2020 for which she presented here. Otherwise, she has been stable on her current seizure medication. Patient took her Lamictal this evening and has felt somewhat better. Patient states she continues to feel somewhat dizzy right now as well as dehydrated. She states her mouth is dry. Patient denies any falls or injuries. Had a COVID-19 test this morning which was negative. - Related Data Allergies Allergy/AdvReac Type Severity Reaction Status Date / Time meclizine Allergy Other Verified 04/19/21 09:17 morphine AdvReac Mild Vomiting Verified 04/19/21 09:17 Home Meds: Home Meds lamoTRIgine 200 mg PO QAM 03/02/18 [History] lamoTRIgine 300 mg PO QPM 03/02/18 [History] Ondansetron [Zofran ODT] 4 mg PO Q6H PRN #20 tab.dis 04/19/21 [Rx] diazePAM [Valium] 1 mg PO BID PRN #20 tab 04/19/21 [Rx] dimenhyDRINATE [Dramamine] 25 mg PO Q6H PRN 04/19/21 [History] Past Medical History HEENT History: Reports: Impaired Vision Other HEENT History: glasses Cardiovascular History: Reports: None Gastrointestinal History: Reports: GERD Other Genitourinary History: bladder leakage x 2 years 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: Neurological History: Reports: Seizure, Vertigo, Other (See Below) Endocrine/Metabolic History: Reports: None Hematologic History: Reports: None Immunologic History: Reports: None Oncologic (Cancer) History: Reports: None Other Dermatologic History: left arm tumor removed - Infectious Disease History Infectious Disease History: Reports: Chicken Pox, Shingles - Past Surgical History Head Surgeries/Procedures: Reports: None Other HEENT Surgeries/Procedures: trachotomy at 2 yrs of age Neurological Surgical History: Reports: Other (See Below) Other Neurological Surgeries/Procedures: frontal lobectomy Social & Family History - Caffeine Use Caffeine Use: Reports: None - Recreational Drug Use Recreational Drug Use: No - Living Situation & Occupation Living situation: Reports: Single 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[employer]) ED ROS GENERAL - Review of Systems Review Of Systems: See Below Free Text/Narrative/Comment: In addition to that documented in the HPI above, the additional ROS was obtained: Constitutional: Denies fevers or chills Eyes: Denies vision changes ENMT: Denies sore throat CV: Denies chest pain Resp: Denies SOB GI: Denies vomiting or diarrhea : Denies painful urination MSK: Denies recent trauma Skin: Denies new rashes Neuro: Denies new numbness or tingling or weakness Endocrine: Denies unexpected weight loss Heme: Denies bleeding disorders - Physical Exam Exam: See Below Text/Narrative:: I have reviewed the triage vital signs Const: Well nourished, well developed, appears stated age Eyes: Pupils Equal and reactive to light bilaterally, no conjunctival injection HENT: No signs of trauma or swelling, Neck supple without meningismus CV: Regular Rate Rhythm, Warm, well-perfused extremities RESP: Unlabored respiratory effort GI: soft, non-tender, non-distended, no masses MSK: No gross deformities appreciated Skin: Warm, dry. No rashes Neuro: Alert, escrow closer II-XII grossly intact. Sensation and motor function of extremities grossly intact. Psych: Appropriate mood and affect. Course - Vital Signs Last Recorded V/S: Last Vital Signs Temp 37.6 C 04/15/21 21:36 Pulse 75 04/15/21 21:36 Resp 18 04/15/21 21:36 BP 121/62 04/15/21 21:36 Pulse Ox 94 L 04/15/21 21:36 - Orders/Labs/Meds Labs: Laboratory Tests 04/15/21 04/15/21 04/15/21 Range/Units 21:45 21:45 21:45 WBC 4.17 (3.98-10.04) K/mm3 RBC 4.68 (3.98-5.22) M/mm3 Hgb 14.3 (11.2-15.7) gm/dl Hct 42.9 (34.1-44.9) % MCV 91.7 (79.4-94.8) fl MCH 30.6 (25.6-32.2) pg MCHC 33.3 (32.2-35.5) g/dl RDW Std Deviation 44.9 (36.4-46.3) fL Plt Count 112 L D (182-369) K/mm3 MPV 10.1 (9.4-12.3) fl Neut % (Auto) 64.0 (34.0-71.1) % Lymph % (Auto) 23.3 (19.3-51.7) % [place] % (Auto) 12.0 (4.7-12.5) % Eos % (Auto) 0.2 L (0.7-5.8) Baso % (Auto) 0.5 (0.1-1.2) % Neut # (Auto) 2.67 (1.56-6.13) K/mm3 Lymph # (Auto) 0.97 L (1.18-3.74) K/mm3 [place] # (Auto) 0.50 H (0.24-0.36) K/mm3 Eos # (Auto) 0.01 L (0.04-0.36) K/mm3 Baso # (Auto) 0.02 (0.01-0.08) K/mm3 Sodium 135 L (136-145) mEq/L Potassium 3.5 (3.5-5.1) mEq/L Chloride 99 (98-107) mEq/L Carbon Dioxide 25 (21-32) mEq/L Anion Gap 14.5 (5-15) BUN 9 (7-18) mg/dL Creatinine 0.7 (0.55-1.02) mg/dL Est Cr Clr Drug Dosing 68.05 mL/min Estimated GFR (MDRD) > 60 (>60) mL/min BUN/Creatinine Ratio 12.9 L (14-18) Glucose 128 H (70-99) mg/dL Calcium 8.0 L (8.5-10.1) mg/dL Total Bilirubin 0.3 (0.2-1.0) mg/dL AST 31 (15-37) U/L ALT 43 (14-59) U/L Alkaline Phosphatase 83 (46-116) U/L Total Protein 7.2 (6.4-8.2) g/dl Albumin 3.4 (3.4-5.0) g/dl Globulin 3.8 gm/dL Albumin/Globulin Ratio 0.9 L (1-2) Lamotrigine 12.7 (2.0-20.0) ug/mL Meds: Medications Discontinued Medications Generic Name Dose Route Start Last Admin Trade Name Freq PRN Reason Stop Dose Admin Lactated Ringer's 1,000 mls @ 1,000 mls/hr 04/15/21 22:10 04/15/21 22:21 Ringers, Lactated IV 04/15/21 23:09 1,000 mls/hr .BOLUS ONE Administration Ondansetron HCl 4 mg 04/15/21 22:07 04/15/21 22:21 Ondansetron 4 Mg/2 Ml Sdv IVPUSH 04/15/21 22:08 4 mg ONETIME ONE Administration Departure - Departure Time of Disposition: 00:17 Disposition: Home, Self-Care 01 Clinical Impression: Petit mal seizure status, Vertigo - Discharge Information Instructions: Vertigo, [id number], Seizure, Adult, [id number] Referrals: Livia Hernandez MD [Primary Care Provider] - Forms: ED Department Discharge, ED Return to Work/School Form - Assessment/Plan Assessment:: Patient is 61-year-old female presenting to the emergency room with a chief complaint of seizures. Patient conversant and not demonstrating any neurologic deficits during the emergency department stay. Patient seizure symptoms were minor in nature and she states they did not occur while in the emergency room here. Seem to have stopped after taking her evening dose of Lamictal. Work-up in the emergency room include laboratory studies and head CT. These all returned without significant abnormality. Patient complaining of some mild dizziness which did improve with IV fluids. Patient walking with steady gait. At this point, patient is stable for discharge and outpatient follow-up. Lamotrigine level sent for outpatient reference lab which will be back in a few days. Differential diagnosis considered for this patient include seizure, cerebellar stroke, electrolyte abnormality, intracranial hemorrhage. Patient agrees with this plan. Return precautions given as usual. All questions answered and addressed.
--- NOTE | 2021-04-16 07:26 | CT ---
Head CT Technique: Multiple axial sections through the brain were obtained. Intravenous contrast was not utilized. Reconstructed coronal and sagittal images were obtained. Comparison: Prior head CT study of 02/11/20. Findings: Stable area of encephalomalacia is noted within the right frontal lobe. Bone window settings show previous surgery within craniotomy on the right side. Ventricles along with basal cisterns and sulci over the convexities are within normal limits. No abnormal parenchymal densities are seen. No evidence of intracranial hemorrhage is seen. No midline shift or mass-effect is seen. Bone window settings were reviewed which show additional surgery within the left temporal region. No acute calvarial abnormality is appreciated. Visualized mastoid sinuses and paranasal sinuses show nothing acute. Impression: 1. Prior surgery within both sides of the calvarium. 2. Stable area of encephalomalacia within the right frontal lobe. 3. No acute intracranial abnormality is seen. No change from prior head CT study is seen. Diagnostic code #2 I agree with preliminary report from [facility], finalized on 04/16/21, 12:49 AM CDT, code 1
== END 2021-04-16 00:54 | disposition home or self-care (01) ==
LOC: JD.ED 21:26
DX: G40.A09 Absence epileptic syndrome, not intractable, without status epilepticus (principal); R42 Dizziness and giddiness; Z88.8 Allergy status to other drugs, medicaments and biological substances; Z88.5 Allergy status to narcotic agent
CPT/HCPCS: 36415; 70450; 80053; 80175; 85025; 96374; 99284; J2405; J7120

== ENCOUNTER 2021-04-17 06:25 | Emergency (ER) | payer OTHER ==
[2021-04-17] MEDS ORDERED: Sodium Chloride 0.9% 10 ML Syringe FLUSH PRN (07:49)
[2021-04-17] MEDS ORDERED: Ondansetron 4 MG/2 ML SDV IVPUSH ONE (07:49)
[2021-04-17] MEDS ORDERED: Sodium Chloride 0.9% 1,000 ML IV SCH (08:00)
--- NOTE | 2021-04-17 10:30 | EDM.PDOC ---
ED HPI GENERAL MEDICAL PROBLEM - General Chief Complaint: General Stated Complaint: eufemia amb Time Seen by Provider: 04/17/21 07:20 Source of Information: Reports: Patient, RN Notes Reviewed - History of Present Illness INITIAL COMMENTS - FREE TEXT/NARRATIVE: 61 yr old female comes in with dizziness, vertigo of about 3 day duration. She did test covid positive just yesterday but has had sx for about 13 days. She has had nausea, decreased appetite, low energy. Very occasional cough only. No [place], recent fever or difficulty breathing. 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: Neurological History: Reports: Seizure, Vertigo, Other (See Below) Endocrine/Metabolic History: Reports: None Hematologic History: Reports: None Immunologic History: Reports: None Oncologic (Cancer) History: Reports: None Other Dermatologic History: left arm tumor removed - Infectious Disease History Infectious Disease History: Reports: Chicken Pox, Novel Coronavirus, Shingles - Past Surgical History Head Surgeries/Procedures: Reports: None Other HEENT Surgeries/Procedures: trachotomy at 2 yrs of age Neurological Surgical History: Reports: Other (See Below) Other Neurological Surgeries/Procedures: frontal lobectomy Social & Family History - Tobacco Use Tobacco Use Status *Q: Never Tobacco User Second Hand Smoke Exposure: No - Caffeine Use Caffeine Use: Reports: None - Recreational Drug Use Recreational Drug Use: No - Living Situation & Occupation Living situation: Reports: Single 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 Denies: Fever HEENT: Denies: Rhinitis, Throat Pain Respiratory: Reports: Cough. Denies: Shortness of Breath Cardiovascular: Denies: Chest Pain Endocrine: Reports: Fatigue GI/Abdominal: Reports: Nausea, Vomiting. Denies: Abdominal Pain Musculoskeletal: Denies: Joint Pain Skin: Denies: Rash Neurological: Reports: Dizziness, Weakness (mild generalized). Denies: Headache ED EXAM, GENERAL - Physical Exam Exam: See Below General Appearance: Alert, No Apparent Distress Head: Atraumatic Neck: Supple Respiratory/Chest: No Respiratory Distress, Lungs Clear, Normal Breath Sounds. No: Rales, Rhonchi, Wheezing GI/Abdominal: Soft, Non-Tender Extremities: Normal Inspection. No: Pedal Edema, Leg Pain Neurological: Alert, Oriented, No Motor/Sensory Deficits Skin Exam: Warm, Dry, Normal Color Course - Vital Signs Last Recorded V/S: Last Vital Signs Temp 97.6 F 04/17/21 06:34 Pulse 60 04/17/21 06:34 Resp 20 04/17/21 06:34 BP 122/63 04/17/21 06:34 Pulse Ox 90 L 04/17/21 06:34 - Orders/Labs/Meds Orders: Active Orders 24 hr Category Date Time Status Peripheral IV Care [RC] . DIRECTED Care 04/17/21 07:49 Active Sodium Chloride 0.9% [Normal Saline] 1,000 ml Med 04/17/21 08:00 Active IV ONETIME Sodium Chloride 0.9% [Saline Flush] Med 04/17/21 07:49 Active 10 ml FLUSH ASDIRECTED PRN Peripheral IV Insertion Adult [OM.PC] Stat Oth 04/17/21 07:49 Ordered Medication Orders Sodium Chloride (Normal Saline) 1,000 mls @ 999 mls/hr IV ONETIME [facility] Last Admin: 04/17/21 07:57 Dose: 999 mls/hr Documented by: ALCIDES Sodium Chloride (Sodium Chloride 0.9% 10 Ml Syringe) 10 ml FLUSH ASDIRECTED PRN PRN Reason: Keep Vein Open Last Admin: 04/17/21 08:00 Dose: 10 ml Documented by: ALCIDES Labs: Laboratory Tests 04/17/21 04/17/21 Range/Units 06:50 06:50 WBC 5.69 (3.98-10.04) K/mm3 RBC 4.75 (3.98-5.22) M/mm3 Hgb 14.4 (11.2-15.7) gm/dl Hct 43.9 (34.1-44.9) % MCV 92.4 (79.4-94.8) fl MCH 30.3 (25.6-32.2) pg MCHC 32.8 (32.2-35.5) g/dl RDW Std Deviation 45.1 (36.4-46.3) fL Plt Count 122 L (182-369) K/mm3 MPV 10.4 (9.4-12.3) fl Neut % (Auto) 70.2 (34.0-71.1) % Lymph % (Auto) 16.7 L (19.3-51.7) % [place] % (Auto) 11.6 (4.7-12.5) % Eos % (Auto) 0.7 (0.7-5.8) Baso % (Auto) 0.4 (0.1-1.2) % Neut # (Auto) 4.00 (1.56-6.13) K/mm3 Lymph # (Auto) 0.95 L (1.18-3.74) K/mm3 [place] # (Auto) 0.66 H (0.24-0.36) K/mm3 Eos # (Auto) 0.04 (0.04-0.36) K/mm3 Baso # (Auto) 0.02 (0.01-0.08) K/mm3 Sodium 141 (136-145) mEq/L Potassium 3.7 (3.5-5.1) mEq/L Chloride 104 (98-107) mEq/L Carbon Dioxide 27 (21-32) mEq/L Anion Gap 13.7 (5-15) BUN 11 (7-18) mg/dL Creatinine 0.7 (0.55-1.02) mg/dL Est Cr Clr Drug Dosing 68.05 mL/min Estimated GFR (MDRD) > 60 (>60) mL/min BUN/Creatinine Ratio 15.7 (14-18) Glucose 111 H (70-99) mg/dL Calcium 8.4 L (8.5-10.1) mg/dL Total Bilirubin 0.5 (0.2-1.0) mg/dL AST 30 (15-37) U/L ALT 37 (14-59) U/L Alkaline Phosphatase 73 (46-116) U/L Total Protein 7.0 (6.4-8.2) g/dl Albumin 3.4 (3.4-5.0) g/dl Globulin 3.6 gm/dL Albumin/Globulin Ratio 0.9 L (1-2) Meds: Medications Generic Name Dose Route Start Last Admin Trade Name John PRN Reason Stop Dose Admin Sodium Chloride 1,000 mls @ 999 mls/hr 04/17/21 08:00 04/17/21 07:57 Normal Saline IV 999 mls/hr ONETIME SHA Administration Sodium Chloride 10 ml 04/17/21 07:49 04/17/21 08:00 Sodium Chloride 0.9% 10 Ml Syringe FLUSH 10 ml ASDIRECTED PRN Administration Keep Vein Open Discontinued Medications Generic Name Dose Route Start Last Admin Trade Name Freq PRN Reason Stop Dose Admin Diazepam 1 mg 04/17/21 07:50 04/17/21 08:02 Diazepam 10 Mg/2 Ml Syringe IVPUSH 04/17/21 07:51 1 mg ONETIME ONE Administration Ondansetron HCl 4 mg 04/17/21 07:49 04/17/21 08:01 Ondansetron 4 Mg/2 Ml Sdv IVPUSH 04/17/21 07:50 4 mg ONETIME ONE Administration - Re-Assessments/Exams Free Text/Narrative Re-Assessment/Exam: 04/17/21 10:58 labs are good, have given 1 liter of NS, 1 mg valium, zofran IV and with that she feels better. Discharge instr. as documented. Departure - Departure Time of Disposition: 10:28 Disposition: Home, Self-Care 01 Condition: Fair Clinical Impression: Vertigo - Discharge Information Instructions: Vertigo, [id number] Referrals: Livia Hernandez MD [Primary Care Provider] - Forms: ED Department Discharge, ED Return to Work/School Form Additional Instructions: Drink plenty of water to maintain hydration, careful bland diet as tolerated. Move slowly and carefully as discussed. Follow up clinic as needed. Return to ED as needed if symptoms worsening in any way. Sepsis Event Note (ED) - Evaluation Sepsis Screening Result: No Definite Risk - Focused Exam Vital Signs: Vital Signs Temp Pulse Resp BP Pulse Ox 04/17/21 06:34 97.6 F 60 20 122/63 90 L - My Orders Last 24 Hours: My Active Orders 04/17/21 07:49 Peripheral IV Care [RC] . DIRECTED Sodium Chloride 0.9% [Saline Flush] 10 ml FLUSH ASDIRECTED PRN Peripheral IV Insertion Adult [OM.PC] Stat 04/17/21 08:00 Sodium Chloride 0.9% [Normal Saline] 1,000 ml IV ONETIME - Assessment/Plan Last 24 Hours: My Active Orders 04/17/21 07:49 Peripheral IV Care [RC] . DIRECTED Sodium Chloride 0.9% [Saline Flush] 10 ml FLUSH ASDIRECTED PRN Peripheral IV Insertion Adult [OM.PC] Stat 04/17/21 08:00 Sodium Chloride 0.9% [Normal Saline] 1,000 ml IV ONETIME
== END 2021-04-17 10:50 | disposition home or self-care (01) ==
LOC: JD.ED 06:25
DX: R42 Dizziness and giddiness (principal); R56.9 Unspecified convulsions; Z88.8 Allergy status to other drugs, medicaments and biological substances; Z88.5 Allergy status to narcotic agent; Z79.899 Other long term (current) drug therapy
CPT/HCPCS: 36415; 80053; 85025; 96374; 96375; 99284; J2405; J3360; J7030

== ENCOUNTER 2021-04-19 09:07 | Emergency (ER) | payer OTHER ==
[2021-04-19] MEDS ORDERED: Sodium Chloride 0.9% 10 ML Syringe FLUSH PRN (09:36)
[2021-04-19] MEDS ORDERED: Ondansetron 4 MG/2 ML SDV IVPUSH ONE (09:36)
[2021-04-19] MEDS ORDERED: LORazepam 2 MG/ML SDV IVPUSH ONE (09:38)
[2021-04-19] MEDS ORDERED: Albuterol 6.7 GM Inhaler INH ONE (09:40)
[2021-04-19] MEDS ORDERED: Sodium Chloride 0.9% 1,000 ML IV SCH (09:45)
--- NOTE | 2021-04-19 10:08 | EDM.PDOC ---
ED HPI GENERAL MEDICAL PROBLEM - General Chief Complaint: Neurological Problem Stated Complaint: SEIZURES\ VERTIGO Time Seen by Provider: 04/19/21 09:18 Source of Information: Reports: Patient History Limitations: Reports: No Limitations - History of Present Illness INITIAL COMMENTS - FREE TEXT/NARRATIVE: The patient presents with dizziness and a seizure. She was diagnosed with COVID 19 on April 09 and she said a couple days before that she started having the dizziness. She has been seen here twice for the same and a CT of her head was done a couple days ago that showed old changes. She has no recent changes to her medications. She is on lamictal. She had 3 seizures today. She has a hard time walking due to the dizziness. She has no headache, fever, chills, chest pain, abdominal pain. She does have a slight cough and shortness of breath. She has some nausea. She has no numbness or weakness. Onset: Gradual Duration: Day(s): (13) Severity: Moderate Improves with: Reports: None Worsens with: Reports: None Associated Symptoms: Reports: Cough, Nausea/Vomiting, Shortness of Breath. Denies: Chest Pain, Fever/Chills, Headaches - Related Data Allergies Allergy/AdvReac Type Severity Reaction Status Date / Time meclizine Allergy Other Verified 04/19/21 09:17 morphine AdvReac Mild Vomiting Verified 04/19/21 09:17 Home Meds: Home Meds lamoTRIgine 200 mg PO QAM 03/02/18 [History] lamoTRIgine 300 mg PO QPM 03/02/18 [History] Ondansetron [Zofran ODT] 4 mg PO Q6H PRN #20 tab.dis 04/19/21 [Rx] diazePAM [Valium] 1 mg PO BID PRN #20 tab 04/19/21 [Rx] dimenhyDRINATE [Dramamine] 25 mg PO Q6H PRN 04/19/21 [History] Past Medical History HEENT History: Reports: Impaired Vision Other HEENT History: glasses Cardiovascular History: Reports: None Gastrointestinal History: Reports: GERD Other Genitourinary History: bladder leakage x 2 years 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: Neurological History: Reports: Seizure, Vertigo Endocrine/Metabolic History: Reports: None Hematologic History: Reports: None Immunologic History: Reports: None Oncologic (Cancer) History: Reports: None Other Dermatologic History: left arm tumor removed - Infectious Disease History Infectious Disease History: Reports: Chicken Pox, Novel Coronavirus, Shingles - Past Surgical History Head Surgeries/Procedures: Reports: None Other HEENT Surgeries/Procedures: trachotomy at 2 yrs of age Respiratory Surgical History: Reports: Tracheostomy Neurological Surgical History: Reports: Other (See Below) Other Neurological Surgeries/Procedures: frontal lobectomy Social & Family History - Tobacco Use Tobacco Use Status *Q: Never Tobacco User - Caffeine Use Caffeine Use: Reports: None - Recreational Drug Use Recreational Drug Use: No - Living Situation & Occupation Living situation: Reports: Single 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 Denies: Abdominal Pain, Vomiting : Reports: No Symptoms Musculoskeletal: Reports: No Symptoms Skin: Reports: No Symptoms Neurological: Reports: Dizziness. Denies: Headache, Numbness, Weakness - Physical Exam Exam: See Below Exam Limited By: No Limitations General Appearance: Alert, No Apparent Distress Ears: Normal External Exam Nose: Normal Inspection Head Exam: Atraumatic, Normocephalic Neck: Normal Inspection, Supple, Non-Tender Respiratory/Chest: No Respiratory Distress, Lungs Clear, Normal Breath Sounds Cardiovascular: Regular Rate, Rhythm, No Edema, No Murmur GI/Abdominal: Soft, Non-Tender, No Organomegaly, No Mass Neuro Exam (Abbreviated): Alert, Oriented, No Motor/Sensory Deficits Course - Vital Signs Last Recorded V/S: Last Vital Signs Temp 96.5 F L 04/19/21 09:14 Pulse 66 04/19/21 09:14 Resp 26 H 04/19/21 09:14 BP 139/83 04/19/21 09:14 Pulse Ox 95 04/19/21 10:30 - Orders/Labs/Meds Orders: Active Orders 24 hr Category Date Time Status Cardiac Monitoring [RC] . DIRECTED Care 04/19/21 09:37 Active Oxygen Therapy Adult [Oxygen Therapy, ED] [RC] Care 04/19/21 09:39 Active ASDIRECTED Oxygen Therapy [RC] PRN Care 04/19/21 09:37 Active Peripheral IV Care [RC] . DIRECTED Care 04/19/21 09:38 Active RT Post Treatment Assessment [RC] Click to Edit Care 04/19/21 09:41 Active RT Pre-Treatment Assessment [RC] Click to Edit Care 04/19/21 09:41 Active Sodium Chloride 0.9% [Normal Saline] 1,000 ml Med 04/19/21 09:45 Active IV ASDIRECTED Sodium Chloride 0.9% [Saline Flush] Med 04/19/21 15:30 Active 10 ml FLUSH ASDIRECTED Sodium Chloride 0.9% [Saline Flush] Med 04/19/21 09:36 Active 10 ml FLUSH ASDIRECTED PRN ED Antiemetic Medication Reflex [OM.PC] Stat Oth 04/19/21 09:37 Ordered Peripheral IV Insertion Adult [OM.PC] Stat Oth 04/19/21 09:36 Ordered Medication Orders Sodium Chloride (Normal Saline) 1,000 mls @ 125 mls/hr IV ASDIRECTED SHA Last Admin: 04/19/21 09:48 Dose: 125 mls/hr Documented by: EBERELI Sodium Chloride (Sodium Chloride 0.9% 10 Ml Syringe) 10 ml FLUSH ASDIRECTED PRN PRN Reason: Keep Vein Open Last Admin: 04/19/21 09:48 Dose: 10 ml Documented by: EBERELI Sodium Chloride (Sodium Chloride 0.9% 10 Ml Syringe) 10 ml FLUSH ASDIRECTED SHA Last Admin: 04/19/21 15:55 Dose: 10 ml Documented by: JAMISON Labs: Laboratory Tests 04/19/21 04/19/21 04/19/21 Range/Units 09:20 09:20 09:20 WBC 5.04 (3.98-10.04) K/mm3 RBC 4.85 (3.98-5.22) M/mm3 Hgb 14.4 (11.2-15.7) gm/dl Hct 44.7 (34.1-44.9) % MCV 92.2 (79.4-94.8) fl MCH 29.7 (25.6-32.2) pg MCHC 32.2 (32.2-35.5) g/dl RDW Std Deviation 44.5 (36.4-46.3) fL Plt Count 177 L (182-369) K/mm3 MPV 9.6 (9.4-12.3) fl Neut % (Auto) 62.9 (34.0-71.1) % Lymph % (Auto) 23.4 (19.3-51.7) % [place] % (Auto) 10.3 (4.7-12.5) % Eos % (Auto) 2.0 (0.7-5.8) Baso % (Auto) 0.6 (0.1-1.2) % Neut # (Auto) 3.17 (1.56-6.13) K/mm3 Lymph # (Auto) 1.18 (1.18-3.74) K/mm3 [place] # (Auto) 0.52 H (0.24-0.36) K/mm3 Eos # (Auto) 0.10 (0.04-0.36) K/mm3 Baso # (Auto) 0.03 (0.01-0.08) K/mm3 Manual Slide Review Normal smear D-Dimer, Quantitative 0.36 (0.19-0.50) mg/L Sodium 142 (136-145) mEq/L Potassium 3.1 L (3.5-5.1) mEq/L Chloride 103 (98-107) mEq/L Carbon Dioxide 29 (21-32) mEq/L Anion Gap 13.1 (5-15) BUN 12 (7-18) mg/dL Creatinine 0.8 (0.55-1.02) mg/dL Est Cr Clr Drug Dosing 59.54 mL/min Estimated GFR (MDRD) > 60 (>60) mL/min BUN/Creatinine Ratio 15.0 (14-18) Glucose 92 (70-99) mg/dL Calcium 8.5 (8.5-10.1) mg/dL Magnesium 2.1 (1.8-2.4) mg/dL Total Bilirubin 0.6 (0.2-1.0) mg/dL AST 29 (15-37) U/L ALT 37 (14-59) U/L Alkaline Phosphatase 77 (46-116) U/L C-Reactive Protein 1.9 H* (<1.0) mg/dL Total Protein 7.5 (6.4-8.2) g/dl Albumin 3.4 (3.4-5.0) g/dl Globulin 4.1 gm/dL Albumin/Globulin Ratio 0.8 L (1-2) Meds: Medications Generic Name Dose Route Start Last Admin Trade Name Freq PRN Reason Stop Dose Admin Sodium Chloride 1,000 mls @ 125 mls/hr 04/19/21 09:45 04/19/21 09:48 Normal Saline IV 125 mls/hr ASDIRECTED SHA Administration Sodium Chloride 10 ml 04/19/21 09:36 04/19/21 09:48 Sodium Chloride 0.9% 10 Ml Syringe FLUSH 10 ml ASDIRECTED PRN Administration Keep Vein Open Sodium Chloride 10 ml 04/19/21 15:30 04/19/21 15:55 Sodium Chloride 0.9% 10 Ml Syringe FLUSH 10 ml ASDIRECTED SHA Administration Discontinued Medications Generic Name Dose Route Start Last Admin Trade Name John PRN Reason Stop Dose Admin Albuterol 0 gm 04/19/21 09:40 04/19/21 10:01 Albuterol 6.7 Gm Inhaler INH 04/19/21 09:41 2 puff ONETIME ONE Administration Diazepam 1 mg 04/19/21 16:52 Diazepam 2 Mg Tab PO 04/19/21 16:53 ONETIME ONE Gadobenate Dimeglumine 18 ml 04/19/21 15:28 04/19/21 15:54 Gadobenate Dimeglumine 529 Mg/Ml 20 Ml Sdv IVPUSH 04/19/21 15:29 18 ml ONETIME ONE Administration Lorazepam 1 mg 04/19/21 09:38 04/19/21 09:48 Lorazepam 2 Mg/Ml Sdv IVPUSH 04/19/21 09:39 1 mg ONETIME ONE Administration Ondansetron HCl 4 mg 04/19/21 09:36 04/19/21 09:48 Ondansetron 4 Mg/2 Ml Sdv IVPUSH 04/19/21 09:37 4 mg ONETIME ONE Administration - Re-Assessments/Exams Free Text/Narrative Re-Assessment/Exam: 04/19/21 10:09 I ordered an IV NS at 125mL/hr, ativan 1mg IV, zofran 4mg IV and labs. I was going to order a CT of her head but she did not want one. She had one done 2 days ago. 04/19/21 12:19 Her CBC looks good. Her D-dimer was normal. Her K is low at 3.1. Her CRP is elevated slightly at 1.9. Her CXR shows slight increased density on both sides of the chest. Please rule out COVID pneumonia. Density within the lateral left costophrenic angle either due to atelectasis or pneumonia. Other findings believed to be chronic. She feels better. I will have my nurse get her up and see how she does. 04/19/21 13:16 She did not do well. She was dizzy and almost fell backward. I called MRI and they have a spot in an hour and a half. I have ordered an MRI of her brain with and without contrast and an MRA. 04/19/21 16:52 The MRI of her brain shows focal area of encephalomalacia within the right frontal lobe. Mild area of increased signal on the FLAIR sequence is noted around this defect. These findings are felt to be fairly chronic. Other portions of the MRI study of the brain and internal auditory canals appear within normal limits. The MRA of her brain shows nothing acute. She feels better. I feel she has vertigo from the COVID. I will give her a dose of valium here and a prescription for more. I will also give her a walker. Departure - Departure Time of Disposition: 17:00 Disposition: Home, Self-Care 01 Condition: Good Clinical Impression: Vertigo, COVID-19, Seizure - Discharge Information *PRESCRIPTION DRUG MONITORING PROGRAM REVIEWED*: Not Applicable *COPY OF PRESCRIPTION DRUG MONITORING REPORT IN PATIENT SIA: Not Applicable Prescriptions: diazePAM [Valium] 1 mg PO BID PRN #20 tab PRN Reason: Dizziness Ondansetron [Zofran ODT] 4 mg PO Q6H PRN #20 tab.dis PRN Reason: Nausea\vomiting Referrals: PCP,None [Primary Care Provider] - Forms: ED Department Discharge, ED Return to Work/School Form Additional Instructions: Drink plenty of fluids. Take the valium 1mg every 12 hours as needed for vertigo. Take the zofran every 6 hours as needed for dizziness or nausea. Keep taking your seizure medications. Use the walker. Follow up with physical therapy as needed. Follow up with your provider early next week. Please return if you are worse. Sepsis Event Note (ED) - Evaluation Sepsis Screening Result: No Definite Risk - Focused Exam Vital Signs: Vital Signs Temp Pulse Resp BP Pulse Ox Pulse Ox 04/19/21 10:30 95 04/19/21 10:15 84 L 04/19/21 09:14 96.5 F L 66 26 H 139/83 90 L - My Orders Last 24 Hours: My Active Orders 04/19/21 09:36 Sodium Chloride 0.9% [Saline Flush] 10 ml FLUSH ASDIRECTED PRN Peripheral IV Insertion Adult [OM.PC] Stat 04/19/21 09:37 Cardiac Monitoring [RC] . DIRECTED Oxygen Therapy [RC] PRN ED Antiemetic Medication Reflex [OM.PC] Stat 04/19/21 09:38 Peripheral IV Care [RC] . DIRECTED 04/19/21 09:39 Oxygen Therapy Adult [Oxygen Therapy, ED] [RC] ASDIRECTED 04/19/21 09:41 RT Post Treatment Assessment [RC] Click to Edit RT Pre-Treatment Assessment [RC] Click to Edit 04/19/21 09:45 Sodium Chloride 0.9% [Normal Saline] 1,000 ml IV ASDIRECTED 04/19/21 15:30 Sodium Chloride 0.9% [Saline Flush] 10 ml FLUSH ASDIRECTED - Assessment/Plan Last 24 Hours: My Active Orders 04/19/21 09:36 Sodium Chloride 0.9% [Saline Flush] 10 ml FLUSH ASDIRECTED PRN Peripheral IV Insertion Adult [OM.PC] Stat 04/19/21 09:37 Cardiac Monitoring [RC] . DIRECTED Oxygen Therapy [RC] PRN ED Antiemetic Medication Reflex [OM.PC] Stat 04/19/21 09:38 Peripheral IV Care [RC] . DIRECTED 04/19/21 09:39 Oxygen Therapy Adult [Oxygen Therapy, ED] [RC] ASDIRECTED 04/19/21 09:41 RT Post Treatment Assessment [RC] Click to Edit RT Pre-Treatment Assessment [RC] Click to Edit 04/19/21 09:45 Sodium Chloride 0.9% [Normal Saline] 1,000 ml IV ASDIRECTED 04/19/21 15:30 Sodium Chloride 0.9% [Saline Flush] 10 ml FLUSH ASDIRECTED
--- NOTE | 2021-04-19 10:23 | CR ---
Chest: Portable view of the chest was obtained. Comparison: Prior chest x-ray of 06/22/19. Slight increased density is seen throughout both sides of the chest. These findings are an interval change from prior exam. There is also mild focal density within the lateral left costophrenic angle possibly due to atelectasis or pneumonia. Heart size and mediastinum are normal. Slight scoliosis is noted within the spine with scattered degenerative change. Impression: 1. Slight increased density on both sides of the chest. Please rule out COVID pneumonia. 2. Density within the lateral left costophrenic angle either due to atelectasis or pneumonia. 3. Other findings believed to be chronic. Diagnostic code #3
[2021-04-19] MEDS ORDERED: Gadobenate Dimeglumine 529 MG/ML 20 ML SDV IVPUSH ONE (15:28)
[2021-04-19] MEDS ORDERED: Sodium Chloride 0.9% 10 ML Syringe FLUSH SCH (15:30)
--- NOTE | 2021-04-19 16:17 | MR ---
MRI angiogram of brain Technique: Multiple axial sections were obtained centered to the [place]. Reconstructed MIP images were obtained. Comparison: No prior CT angiogram is available. Findings: Basilar artery is patent. There is normal appearance of the posterior cerebral arteries on both sides arising from the basilar artery. No focal stenosis or occlusion is seen. There is a posterior communicating artery branch on the left side. No patent posterior communicating artery is seen on the right side which is a normal variant. Right internal carotid artery is seen and supplies the right middle cerebral artery. Left internal carotid artery supplies left middle cerebral artery and both anterior cerebral arteries. There are no focal areas of stenosis being seen. No occlusions are seen. No discrete aneurysms are identified. Impression: 1. Incidental findings as noted above. No focal stenosis or aneurysm is seen. Diagnostic code #2
--- NOTE | 2021-04-19 16:28 | MR ---
MRI brain with internal auditory canals (without and with intravenous contrast) Technique: T1 sagittal; T2, T2 FLAIR, T1 and diffusion axial; T2 gradient echo axial images through the brain stem; T1 coronal images were obtained; fat-suppressed T1 coronal and axial through the internal auditory canals were obtained without and with intravenous contrast; post contrast T1-weighted axial and T1-weighted coronal images were obtained. Comparison: Prior head CT study of 04/15/21. Findings: Ventricles along with basal cisterns and sulci over the convexities are within normal limits for the patient's age. Normal signal void is seen within the major cerebral arteries within the skull base. There is a focal area of encephalomalacia within the right frontal lobe which is a stable finding from prior CT exam. Slight area of increased signal is seen on the FLAIR sequence around this area of encephalomalacia. No other abnormal signal is seen within the brain parenchyma. No abnormal diffusion is seen within the brain parenchyma. Visualized paranasal sinuses and mastoid sinuses are clear. Contents of the internal auditory canals show no mass or abnormal enhancement. No cerebellopontine angle cistern mass is seen. No abnormal enhancement is seen within the brain parenchyma. Impression: 1. Focal area of encephalomalacia within the right frontal lobe. Mild area of increased signal on the FLAIR sequence is noted around this defect. These findings are felt to be fairly chronic. 2. Other portions of the MRI study of the brain and internal auditory canals appear within normal limits. Diagnostic code #2
[2021-04-19] MEDS ORDERED: Diazepam 2 MG Tab PO ONE (16:52)
== END 2021-04-19 18:00 | disposition home or self-care (01) ==
LOC: JD.ED 09:07
DX: U07.1 COVID-19 (principal); R42 Dizziness and giddiness; R56.9 Unspecified convulsions; Z88.5 Allergy status to narcotic agent; Z88.8 Allergy status to other drugs, medicaments and biological substances
CPT/HCPCS: 36415; 70544; 70553; 71045; 80053; 83735; 85025; 85379; 86140; 94640; 96374; 96375; 99285; A9270; A9577; J2060; J2405; J7030

== ENCOUNTER 2021-04-22 07:36 | Inpatient (IN) | payer OTHER ==
--- NOTE | 2021-04-22 07:54 | EDM.PDOC ---
<Jeffrey Duarte - Last Filed: 04/23/21 05:49> ED HPI GENERAL MEDICAL PROBLEM - General Chief Complaint: Neuro Symptoms/Deficits Stated Complaint: [facility] Time Seen by Provider: 04/22/21 07:45 - Related Data Allergies Allergy/AdvReac Type Severity Reaction Status Date / Time meclizine Allergy Other Verified 04/22/21 07:42 morphine AdvReac Mild Vomiting Verified 04/22/21 07:42 Home Meds: Home Meds lamoTRIgine 200 mg PO QAM 03/02/18 [History] lamoTRIgine 300 mg PO QPM 03/02/18 [History] Ondansetron [Zofran ODT] 4 mg PO Q6H PRN #20 tab.dis 04/19/21 [Rx] diazePAM [Valium] 1 mg PO BID PRN #20 tab 04/19/21 [Rx] dimenhyDRINATE [Dramamine] 25 mg PO Q6H PRN 04/19/21 [History] Course - Re-Assessments/Exams Free Text/Narrative Re-Assessment/Exam: 04/23/21 05:49 During course of my shift, patient was resting comfortably with no overnight events. Laboratory studies were reviewed. Remainder of care and treatment plan per Dr. Cunha. Departure - Departure Disposition: Refer to Observation Clinical Impression: COVID-19, Vertigo UTI (urinary tract infection) Qualifiers: Urinary tract infection type: site unspecified Hematuria presence: without hematuria Qualified Code(s): N39.0 - Urinary tract infection, site not specified - Discharge Information <Frank Cunha - Last Filed: 04/23/21 19:40> ED HPI GENERAL MEDICAL PROBLEM - History of Present Illness INITIAL COMMENTS - FREE TEXT/NARRATIVE: 61-year-old female presents to the emergency room brought in by EMS after having another seizure this morning. Patient has been having more frequent seizures lately. She has been seen here several times in this emergency department. Patient does take her Lamictal and had a Lamictal level checked on the this was therapeutic at 12. There is some room to increase the dose if needed. The patient is getting over Covid and with this has had a lot of dizziness associated with Covid. At times it is unclear deciphering her dizziness from her seizures. 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 When she has her seizures her head usually starts to shake. After the seizure the patient know she has had a seizure but that does not necessarily remember having a seizure. Here in the emergency department she says she has had a couple I witnessed 1 of these the patient would answer questions during these episodes and to a lesser degree follow commands. The pat yareli has had some nausea this morning she took a Zofran but believes she threw it up. Head Pain Score (Numeric/FACES): 1 Past Medical History HEENT History: Reports: Impaired Vision Other HEENT History: glasses Cardiovascular History: Reports: None Gastrointestinal History: Reports: GERD Other Genitourinary History: bladder leakage x 2 years [employer] History: Reports: Neurological History: Reports: Seizure, Vertigo Endocrine/Metabolic History: Reports: None Hematologic History: Reports: None Immunologic History: Reports: None Oncologic (Cancer) History: Reports: None Other Dermatologic History: left arm tumor removed - Infectious Disease History Infectious Disease History: Reports: Chicken Pox, Novel Coronavirus, Shingles - Past Surgical History Head Surgeries/Procedures: Reports: None Other HEENT Surgeries/Procedures: trachotomy at 2 yrs of age Respiratory Surgical History: Reports: Tracheostomy Neurological Surgical History: Reports: Other (See Below) Other Neurological Surgeries/Procedures: frontal lobectomy Social & Family History - Caffeine Use Caffeine Use: Reports: None - Living Situation & Occupation Living situation: Reports: Single 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 Denies: Abdominal Pain Musculoskeletal: Reports: No Symptoms Skin: Reports: No Symptoms Neurological: Reports: Dizziness ED EXAM, GENERAL - Physical Exam Exam: See Below Exam Limited By: No Limitations General Appearance: Alert, Anxious (Patient is quite anxious at this time) Eye Exam: Bilateral Eye: Normal Inspection, PERRL Ears: Normal External Exam, Normal Canal, Hearing Grossly Normal, Normal TMs Nose: Normal Inspection, Normal Mucosa, No Blood Throat/Mouth: Normal Inspection, Normal Lips, Normal Oropharynx, Normal Voice, No Airway Compromise, Other (Mucosa is semidry) Head: Atraumatic, Normocephalic Neck: Normal Inspection, Supple, Non-Tender, Full Range of Motion. No: Lymphadenopathy (L), Lymphadenopathy (R) Respiratory/Chest: No Respiratory Distress, Lungs Clear, Normal Breath Sounds Cardiovascular: Regular Rate, Rhythm, No Murmur, Other (Scant edema she says this is normal for her) GI/Abdominal: Normal Bowel Sounds, Soft, Non-Tender Back Exam: Normal Inspection. No: CVA Tenderness (L), CVA Tenderness (R) Course - Radiology Interpretation Free Text/Narrative:: Sent is feeling better after getting her potassium helped she received 40 mEq of oral potassium 40 mEq of IV potassium. Patient still little unsteady on her feet and she still having these petit mall seizures. I got a call out to [facility] to get a hold of her neurologist Donald Gilbert MD however I got the recorded They will call me back at their convenience. - Re-Assessments/Exams Free Text/Narrative Re-Assessment/Exam: 04/22/21 11:21 Potassium is quite low at 2.7 we will give her 40 mEq oral and 40 mEq through the IV. Patient appears to have a bladder infection as well 04/22/21 18:39 With the patient's recurrent and more frequent seizures and consider increasing her Lamictal to 300 mg twice a times a day I did review this with Dr. Álvarez, neurologist at [facility] in [place] who is covering for the patient's regular neurologist his recommendation was to go up 50 mg on her morning dose so 250 mg instead of 200 mg each morning and continuing the evening dose at 300 mg. I did discuss this with the patient and her daughter who agreed with trying this however I tried to ambulate the patient and she is just too unsteady on her feet she can hang onto the walker but the tendency is to try and fall backwards. From what I have seen she is not safe to go home. 04/22/21 19:28 It is change of shift further care disposition per Dr. Duarte Free Text/Narrative Re-Assessment/Exam: 04/23/21 19:36 The patient has done well today she is stronger now than she was yesterday however with careful consideration with the patient and family we cannot put together a safe discharge plan at this time. We might possibly have a couple swing bed options for tomorrow. And over time she seems to be getting a little stronger so the safest option at this time is not to discharge her. Sepsis Event Note (ED) - Evaluation Sepsis Screening Result: No Definite Risk <Jordan Manning - Last Filed: 04/24/21 16:03> Course - Vital Signs Last Recorded V/S: Last Vital Signs Temp 96.8 F L 04/23/21 15:50 Pulse 63 04/24/21 04:00 Resp 20 04/24/21 04:00 BP 137/76 04/24/21 04:00 Pulse Ox 94 L 04/24/21 04:00 - Orders/Labs/Meds Orders: Active Orders 24 hr Category Date Time Status Admission Status [Patient Status] [ADT] Routine ADT 04/24/21 15:23 Active Consult to Physical Therapy [PT Evaluation and Cons 04/24/21 13:51 Active Treatment] [CONS] Routine Cefdinir [Omnicef] Med 04/23/21 21:00 Active 300 mg PO BID Medication Orders Cefdinir (Cefdinir 300 Mg Cap) 300 mg PO BID [facility] Last Admin: 04/24/21 09:57 Dose: 300 mg Documented by: [id number] Admin: 04/23/21 20:04 Dose: 300 mg Documented by: [id number] Lactated Ringer's (Ringers, Lactated) 1,000 mls @ 125 mls/hr IV ASDIRECTED [facility] Last Admin: 04/23/21 07:55 Dose: 125 mls/hr Documented by: [email or web address] Labs: Laboratory Tests 04/22/21 04/22/21 04/22/21 Range/Units 08:19 08:19 11:00 WBC 5.36 (3.98-10.04) K/mm3 RBC 4.98 (3.98-5.22) M/mm3 Hgb 14.9 (11.2-15.7) gm/dl Hct 45.0 H (34.1-44.9) % MCV 90.4 (79.4-94.8) fl MCH 29.9 (25.6-32.2) pg MCHC 33.1 (32.2-35.5) g/dl RDW Std Deviation 42.7 (36.4-46.3) fL Plt Count 226 (182-369) K/mm3 MPV 9.1 L (9.4-12.3) fl Neut % (Auto) 74.3 H (34.0-71.1) % Lymph % (Auto) 15.3 L (19.3-51.7) % [place] % (Auto) 6.0 (4.7-12.5) % Eos % (Auto) 3.0 (0.7-5.8) Baso % (Auto) 0.7 (0.1-1.2) % Neut # (Auto) 3.98 (1.56-6.13) K/mm3 Lymph # (Auto) 0.82 L (1.18-3.74) K/mm3 [place] # (Auto) 0.32 (0.24-0.36) K/mm3 Eos # (Auto) 0.16 (0.04-0.36) K/mm3 Baso # (Auto) 0.04 (0.01-0.08) K/mm3 Manual Slide Review Normal smear Sodium 142 (136-145) mEq/L Potassium 2.7 L (3.5-5.1) mEq/L Chloride 103 (98-107) mEq/L Carbon Dioxide 27 (21-32) mEq/L Anion Gap 14.7 (5-15) BUN 11 (7-18) mg/dL Creatinine 0.8 (0.55-1.02) mg/dL Est Cr Clr Drug Dosing 59.54 mL/min Estimated GFR (MDRD) > 60 (>60) mL/min BUN/Creatinine Ratio 13.8 L (14-18) Glucose 142 H (70-99) mg/dL Calcium 8.6 (8.5-10.1) mg/dL Total Bilirubin 0.5 (0.2-1.0) mg/dL AST 23 (15-37) U/L ALT 35 (14-59) U/L Alkaline Phosphatase 80 (46-116) U/L Total Protein 7.4 (6.4-8.2) g/dl Albumin 3.3 L (3.4-5.0) g/dl Globulin 4.1 gm/dL Albumin/Globulin Ratio 0.8 L (1-2) Urine Color Light yellow (Yellow) Urine Appearance Clear (Clear) Urine pH 7.5 (5.0-8.0) Ur Specific [place] 1.020 (1.005-1.030) Urine Protein Negative (Negative) Urine Glucose (UA) Negative (Negative) Urine Ketones Negative (Negative) Urine Occult Blood Trace-intact H (Negative) Urine Nitrite Positive H (Negative) Urine Bilirubin Negative (Negative) Urine Urobilinogen 0.2 (0.2-1.0) Ur Leukocyte Esterase 3+ H (Negative) Urine RBC 5-10 H (0-5) /hpf Urine WBC 30-40 H (0-5) /hpf Urine WBC Clumps Few (NOT SEEN) /hpf Ur Squamous Epith Cells 0-5 (0-5) /hpf Urine Bacteria Many H (FEW) /hpf Urine Mucus Not seen (FEW) /hpf 04/22/21 Range/Units 16:50 WBC (3.98-10.04) K/mm3 RBC (3.98-5.22) M/mm3 Hgb (11.2-15.7) gm/dl Hct (34.1-44.9) % MCV (79.4-94.8) fl MCH (25.6-32.2) pg MCHC (32.2-35.5) g/dl RDW Std Deviation (36.4-46.3) fL Plt Count (182-369) K/mm3 MPV (9.4-12.3) fl Neut % (Auto) (34.0-71.1) % Lymph % (Auto) (19.3-51.7) % [place] % (Auto) (4.7-12.5) % Eos % (Auto) (0.7-5.8) Baso % (Auto) (0.1-1.2) % Neut # (Auto) (1.56-6.13) K/mm3 Lymph # (Auto) (1.18-3.74) K/mm3 [place] # (Auto) (0.24-0.36) K/mm3 Eos # (Auto) (0.04-0.36) K/mm3 Baso # (Auto) (0.01-0.08) K/mm3 Manual Slide Review Sodium 141 (136-145) mEq/L Potassium 4.5 D (3.5-5.1) mEq/L Chloride 105 (98-107) mEq/L Carbon Dioxide 28 (21-32) mEq/L Anion Gap 12.5 (5-15) BUN 7 (7-18) mg/dL Creatinine 0.6 (0.55-1.02) mg/dL Est Cr Clr Drug Dosing 79.39 mL/min Estimated GFR (MDRD) > 60 (>60) mL/min BUN/Creatinine Ratio 11.7 L (14-18) Glucose 97 (70-99) mg/dL Calcium 8.5 (8.5-10.1) mg/dL Total Bilirubin (0.2-1.0) mg/dL AST (15-37) U/L ALT (14-59) U/L Alkaline Phosphatase (46-116) U/L Total Protein (6.4-8.2) g/dl Albumin (3.4-5.0) g/dl Globulin gm/dL Albumin/Globulin Ratio (1-2) Urine Color (Yellow) Urine Appearance (Clear) Urine pH (5.0-8.0) Ur Specific [place] (1.005-1.030) Urine Protein (Negative) Urine Glucose (UA) (Negative) Urine Ketones (Negative) Urine Occult Blood (Negative) Urine Nitrite (Negative) Urine Bilirubin (Negative) Urine Urobilinogen (0.2-1.0) Ur Leukocyte Esterase (Negative) Urine RBC (0-5) /hpf Urine WBC (0-5) /hpf Urine WBC Clumps (NOT SEEN) /hpf Ur Squamous Epith Cells (0-5) /hpf Urine Bacteria (FEW) /hpf Urine Mucus (FEW) /hpf Meds: Medications Generic Name Dose Route Start Last Admin Trade Name Freq PRN Reason Stop Dose Admin Cefdinir 300 mg 04/23/21 21:00 04/24/21 09:57 Cefdinir 300 Mg Cap PO 300 mg BID SHA Administration Lactated Ringer's 1,000 mls @ 125 mls/hr 04/22/21 08:15 04/23/21 07:55 Ringers, Lactated IV 125 mls/hr ASDIRECTED [facility] Administration Discontinued Medications Generic Name Dose Route Start Last Admin Trade Name Freq PRN Reason Stop Dose Admin Cefdinir 300 mg 04/22/21 11:22 04/22/21 12:49 Cefdinir 300 Mg Cap PO 04/22/21 11:23 300 mg ONETIME ONE Administration Cefdinir 300 mg 04/23/21 07:37 04/23/21 07:56 Cefdinir 300 Mg Cap PO 04/23/21 07:38 300 mg ONETIME ONE Administration Diazepam 1 mg 04/22/21 18:44 04/22/21 20:11 Diazepam 2 Mg Tab PO 04/22/21 18:45 1 mg ONETIME ONE Administration Lactated Ringer's 500 mls @ 999 mls/hr 04/22/21 08:07 04/22/21 08:15 Ringers, Lactated IV 04/22/21 08:37 999 mls/hr .BOLUS ONE Administration Potassium Chloride 10 meq/ 100 mls @ 100 mls/hr 04/22/21 11:30 04/22/21 16:15 Premix IV 04/22/21 15:29 100 mls/hr Q1H SHA Administration Lamotrigine 300 mg 04/22/21 18:42 04/22/21 20:11 Lamotrigine 100 Mg Tab PO 04/22/21 18:43 300 mg ONETIME ONE Administration Lamotrigine 250 mg 04/23/21 10:51 04/23/21 12:00 Lamotrigine 100 Mg Tab PO 04/23/21 10:52 250 mg ONETIME ONE Administration Lamotrigine 300 mg 04/23/21 20:00 04/23/21 20:04 Lamotrigine 100 Mg Tab PO 04/23/21 20:01 300 mg DAILY ONE Administration Lamotrigine 200 mg 04/24/21 11:11 04/24/21 11:20 Lamotrigine 100 Mg Tab PO 04/24/21 11:12 200 mg ONETIME ONE Administration Lorazepam 2 mg 04/22/21 07:58 04/22/21 08:03 Lorazepam 2 Mg/Ml Sdv IVPUSH 04/22/21 07:59 2 mg ONETIME ONE Administration Ondansetron HCl 4 mg 04/22/21 08:03 04/22/21 08:06 Ondansetron 4 Mg/2 Ml Sdv IVPUSH 04/22/21 08:04 4 mg ONETIME ONE Administration Potassium Chloride 40 meq 04/22/21 11:18 04/22/21 12:42 Potassium Chloride 20 Meq Tab.Er PO 04/22/21 11:19 40 meq ONETIME ONE Administration - Re-Assessments/Exams Free Text/Narrative Re-Assessment/Exam: 04/24/21 16:01 The patient has been here for 56 hours already. I had Chris with physical therapy come see her and he felt he can help with therapy. A bed became available. I called Dr Spencer and he agreed to the admission. Departure - Departure Time of Disposition: 16:05 Condition: Good - My Orders Last 24 Hours: My Active Orders 04/23/21 21:00 Cefdinir [Omnicef] 300 mg PO BID 04/24/21 13:51 Consult to Physical Therapy [PT Evaluation and Treatment] [CONS] Routine - Assessment/Plan Last 24 Hours: My Active Orders 04/23/21 21:00 Cefdinir [Omnicef] 300 mg PO BID 04/24/21 13:51 Consult to Physical Therapy [PT Evaluation and Treatment] [CONS] Routine
[2021-04-22] MEDS ORDERED: LORazepam 2 MG/ML SDV IVPUSH ONE (07:58)
[2021-04-22] MEDS ORDERED: Ondansetron 4 MG/2 ML SDV IVPUSH ONE (08:03)
[2021-04-22] MEDS ORDERED: Lactated Ringers 500 ML IV ONE (08:07)
[2021-04-22] MEDS ORDERED: Lactated Ringers 1,000 ML IV SCH (08:15)
[2021-04-22] MEDS ORDERED: Potassium Chloride 20 MEQ Tab.ER PO ONE (11:18)
[2021-04-22] MEDS ORDERED: Cefdinir 300 MG Cap PO ONE (11:22)
[2021-04-22] MEDS: Potassium Chloride 10 MEQ in Premix Bag 1 BAG IV SCH ×4 (12:40→16:15)
[2021-04-22] MEDS ORDERED: lamoTRIgine 100 MG Tab PO ONE (18:42)
[2021-04-22] MEDS ORDERED: Diazepam 2 MG Tab PO ONE (18:44)
[2021-04-23] MEDS ORDERED: Cefdinir 300 MG Cap PO ONE (07:37)
[2021-04-23] MEDS ORDERED: lamoTRIgine 100 MG Tab PO ONE ×2 (10:51→20:00)
[2021-04-23] MEDS: Cefdinir 300 MG Cap PO SCH (20:04)
[2021-04-24] MEDS: Cefdinir 300 MG Cap PO SCH (09:57)
[2021-04-24] MEDS ORDERED: lamoTRIgine 100 MG Tab PO ONE (11:11)
[2021-04-24] MEDS ORDERED: FLU Vacc QS2021-22 36MOS UP/PF 60 MCG/0.5 ML Syringe IM ONE (16:30)
[2021-04-24] MEDS ORDERED: Morphine 2 MG/ML SYRINGE IVPUSH PRN (16:45)
[2021-04-24] MEDS ORDERED: Acetaminophen 325 MG Tab PO PRN (16:45)
[2021-04-24] MEDS ORDERED: oxyCODONE 5 MG Tab PO PRN (16:45)
[2021-04-24] MEDS ORDERED: Albuterol/Ipratropium 3.0-0.5 MG/3 ML Neb Soln NEB PRN (16:45)
[2021-04-24] MEDS ORDERED: Promethazine 12.5 MG in Sodium Chloride 0.9% 50 ML IV PRN (16:45)
--- NOTE | 2021-04-24 17:15 | PCM.HP.2 ---
H&P History of Present Illness - General Date of Service: 04/24/21 Admit Problem/Dx: Admission Diagnosis/Problem Admission Diagnosis/Problem Weakness - History of Present Illness Initial Comments - Free Text/Narative: Patient is a 61-year-old female with seizure disorder status post surgical treatment and Covid positive who presented to the ER due to more frequent seizure disorder episodes and dizziness. As per ER physician, patient had a hemorrhagic stroke 3 years ago but family denies this. Pt has been having seizure disorder since 8-8 years old for which she underwent surgical treatment in 1995. After the surgery, she had less frequent seizure episodes. She has been having more frequent seizure episodes lately. She has a her on neurologist outside. She got a Covid 19 infection about 12 days ago. Since that , she has been having dizziness. She had one episode of dizziness (vertigo) 2 years ago. She complains of nausea and vomiting. She has an unsteady gait and weak too. So patient is unable to discharge home from the ER. Because no bed available, patient has been staying in the ER for almost 2 days. In the ER, CT of the head on April 15 -negative for acute change. MRI brain and MRA brain on April 19-no acute change. Urinalysis compatible with UTI. Head Pain Score (Numeric/FACES): 1 - Related Data Allergies/Adverse Reactions: Allergies Allergy/AdvReac Type Severity Reaction Status Date / Time meclizine Allergy Other Verified 04/24/21 16:27 morphine AdvReac Mild Vomiting Verified 04/24/21 16:27 Home Medications: Home Meds lamoTRIgine 200 mg PO QAM 03/02/18 [History] lamoTRIgine 300 mg PO QPM 03/02/18 [History] Cholecalciferol (Vitamin D3) [Vitamin D3] 5,000 unit PO DAILY 04/24/21 [History] Multivit with Calcium,Iron,Min [One Daily Women's] 1 tab PO DAILY 04/24/21 [History] Past Medical History HEENT History: Reports: Impaired Vision Other HEENT History: wear glasses Cardiovascular History: Reports: None Respiratory History: Reports: Other (See Below) Other Respiratory History: +) COVID. Gastrointestinal History: Reports: GERD Genitourinary History: Reports: Urinary Incontinence Other Genitourinary History: bladder leakage x 2 years [employer] History: Reports: Musculoskeletal History: Reports: Fracture Neurological History: Reports: Seizure, Vertigo Endocrine/Metabolic History: Reports: None Hematologic History: Reports: None Immunologic History: Reports: None Oncologic (Cancer) History: Reports: None Other Dermatologic History: left arm tumor removed - Infectious Disease History Infectious Disease History: Reports: Chicken Pox, Influenza, Novel Coronavirus, Shingles - Past Surgical History Head Surgeries/Procedures: Reports: None Other HEENT Surgeries/Procedures: tracheostomy at 2 yrs of age Respiratory Surgical History: Reports: Tracheostomy Neurological Surgical History: Reports: Other (See Below) Other Neurological Surgeries/Procedures: frontal lobectomy 1995 Social & Family History - Family History Family Medical History: No Pertinent Family History (Denies genetic diseases in family) - Tobacco Use Tobacco Use Status *Q: Never Tobacco User Second Hand Smoke Exposure: No - Caffeine Use Caffeine Use: Reports: None - Recreational Drug Use Recreational Drug Use: No - Living Situation & Occupation Living situation: Reports: Single 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[employer].) H&P Review of Systems - Review of Systems: Review Of Systems: See Below General: Reports: Weakness, Decreased Appetite HEENT: Reports: Vertigo Pulmonary: Reports: No Symptoms Cardiovascular: Reports: No Symptoms Gastrointestinal: Reports: Nausea, Vomiting Genitourinary: Reports: No Symptoms Musculoskeletal: Reports: No Symptoms Skin: Reports: No Symptoms Psychiatric: Reports: No Symptoms Neurological: Reports: Dizziness, Seizure, Weakness, Other (Unsteady gait) Hematologic/Lymphatic: Reports: No Symptoms Immunologic: Reports: No Symptoms Exam - Exam Exam: See Below - Vital Signs Vital Signs: Last Vital Signs Temp 36.6 C 04/24/21 16:11 Pulse 73 04/24/21 16:11 Resp 16 04/24/21 16:11 BP 103/64 04/24/21 16:11 Pulse Ox 96 04/24/21 16:11 Weight: 88.723 kg - Exam General: Alert, Oriented, Cooperative HEENT: Conjunctiva Clear, EOMI, Pupils Equal, Pupils Reactive Neck: Supple, Trachea Midline, Full Range of Motion Lungs: Clear to Auscultation, Normal Respiratory Effort Cardiovascular: Regular Rate, Regular Rhythm, Normal S1, Normal S2 GI/Abdominal Exam: Normal Bowel Sounds, Soft, Non-Tender, No Organomegaly Extremities: Normal Inspection, Normal Range of Motion, Non-Tender, No Pedal Edema Skin: Warm, Dry, Intact Neurological: Cranial Nerves Intact, Reflexes Equal Bilateral, Strength Equal Bilateral Neuro Extensive - Mental Status: Alert, Oriented x3, Normal Mood/Affect Neuro Extensive - Motor, Sensory, Reflexes: Abnormal Gait - Patient Data Result Diagrams: 04/22/21 08:19 04/22/21 16:50 Joey Results Last 24 hrs: Microbiology 04/22/21 11:00 Urine Culture - Final Urine Escherichia Coli Sepsis Event Note - Evaluation Sepsis Screening Result: No Definite Risk - Focused Exam Vital Signs: Vital Signs Temp Pulse Resp BP Pulse Ox 04/24/21 16:11 36.6 C 73 16 103/64 96 Problem List Initiated/Reviewed/Updated: Yes Orders Last 24hrs: Active Orders 24 hr Category Date Time Status Admission Status [Patient Status] [ADT] Routine ADT 04/24/21 15:23 Active Bedrest Bedside Commode [RC] ASDIRECTED Care 04/24/21 16:45 Ordered Cardiac Monitoring [RC] CONTINUOUS Care 04/24/21 16:48 Ordered Intake and Output [RC] QSHIFT Care 04/24/21 16:48 Ordered Oxygen Therapy [RC] PRN Care 04/24/21 16:45 Ordered Pulse Oximetry [RC] CONTINUOUS Care 04/24/21 16:48 Ordered RT Aerosol Therapy [RC] ASDIRECTED Care 04/24/21 16:50 Ordered VTE/DVT Education [RC] PER UNIT ROUTINE Care 04/24/21 16:45 Ordered Vaccine to be Administered/Admin Charge [RC] ASDIRECTED Care 04/24/21 16:21 Active Vital Signs [RC] Q4H Care 04/24/21 16:45 Ordered Consult to Physical Therapy [PT Evaluation and Cons 04/24/21 13:51 Active Treatment] [CONS] Routine OT Evaluation and Treatment [CONS] Routine Cons 04/24/21 16:45 Ordered Regular Diet [DIET] Diet 04/24/21 Dinner Ordered BLOOD CULTURE [MREF] Stat Lab 04/24/21 16:52 Ordered BLOOD CULTURE [MREF] Stat Lab 04/24/21 16:52 Ordered C-REACTIVE PROTEIN [CHEM] DAILY Lab 04/25/21 05:00 Ordered C-REACTIVE PROTEIN [CHEM] DAILY Lab 04/26/21 05:00 Ordered C-REACTIVE PROTEIN [CHEM] DAILY Lab 04/27/21 05:00 Ordered CBC WITH AUTO DIFF [HEME] DAILY Lab 04/25/21 05:00 Ordered CBC WITH AUTO DIFF [HEME] DAILY Lab 04/26/21 05:00 Ordered CBC WITH AUTO DIFF [HEME] DAILY Lab 04/27/21 05:00 Ordered COMPREHENSIVE METABOLIC PN,CMP [CHEM] DAILY Lab 04/25/21 05:00 Ordered COMPREHENSIVE METABOLIC PN,CMP [CHEM] DAILY Lab 04/26/21 05:00 Ordered COMPREHENSIVE METABOLIC PN,CMP [CHEM] DAILY Lab 04/27/21 05:00 Ordered CREATINE KINASE,CK [CHEM] Routine Lab 04/24/21 16:45 Ordered CULTURE URINE [MREF] AM Lab 04/25/21 05:11 Ordered MAGNESIUM [CHEM] Routine Lab 04/24/21 16:45 Ordered PHOSPHORUS [CHEM] Routine Lab 04/24/21 16:45 Ordered TROPONIN I [CHEM] Routine Lab 04/24/21 16:45 Ordered Acetaminophen [TylenoL] Med 04/24/21 16:45 Ordered 650 mg PO Q6H PRN Albuterol/Ipratropium [DuoNeb 3.0-0.5 MG/3 ML] Med 04/24/21 16:45 Ordered 3 ml NEB Q4H PRN Cefdinir [Omnicef] Med 04/23/21 21:00 Stop Req 300 mg PO BID Cholecalciferol (Vitamin D3) [Vitamin D3] Med 04/24/21 17:00 Active 5,000 unit PO DAILY Enoxaparin [Lovenox] Med 04/24/21 17:00 Ordered 40 mg SUBCUT DAILY Lactated Ringers @ 50 MLS/HR(1000ml Bag) Med 04/24/21 17:00 Ordered Lactated Ringers [Ringers, Lactated] 1,000 ml IV ASDIRECTED Multivitamins [Tab-A-Chago] Med 04/25/21 09:00 Active 1 tab PO DAILY Promethazine [Phenergan] 12.5 mg Med 04/24/21 16:45 Ordered Sodium Chloride 0.9% [Normal Saline] 50 ml IV Q6H cefTRIAXone [Rocephin] 1 gm Med 04/24/21 17:00 Active Sodium Chloride 0.9% [Normal Saline] 100 ml IV Q24H oxyCODONE Med 04/24/21 16:45 Ordered 5 mg PO Q6H PRN Blood Culture x2 Reflex Set [OM.PC] Stat Oth 04/24/21 16:45 Ordered Resuscitation Status Routine Resus Stat 04/24/21 16:27 Ordered Medication Orders Acetaminophen (Acetaminophen 325 Mg Tab) 650 mg PO Q6H PRN PRN Reason: Pain (Mild 1-3)/fever Albuterol/Ipratropium (Albuterol/Ipratropium 3.0-0.5 Mg/3 Ml Neb Soln) 3 ml NEB Q4H PRN PRN Reason: Shortness Of Breath/wheezing Cefdinir (Cefdinir 300 Mg Cap) 300 mg PO BID [facility] Last Admin: 04/24/21 09:57 Dose: 300 mg Documented by: [id number] Admin: 04/23/21 20:04 Dose: 300 mg Documented by: [id number] Cholecalciferol (Cholecalciferol (Vitamin D3) 5,000 Unit Cap) 5,000 unit PO DAILY [facility] Enoxaparin Sodium (Enoxaparin 40 Mg/0.4 Ml Syringe) 40 mg SUBCUT DAILY [facility] Lactated Ringer's (Ringers, Lactated) 1,000 mls @ 125 mls/hr IV ASDIRECTED [facility] Last Admin: 04/23/21 07:55 Dose: 125 mls/hr Documented by: [email or web address] Promethazine HCl 12.5 mg/ (Sodium Chloride) 50.5 mls @ 100 mls/hr IV Q6H PRN PRN Reason: Nausea/Vomiting Ceftriaxone Sodium 1 gm/ (Sodium Chloride) 100 mls @ 200 mls/hr IV Q24H [facility] Multivitamins/Minerals/Vitamin C (Multivitamin Tab) 1 tab PO DAILY [facility] Oxycodone HCl (Oxycodone 5 Mg Tab) 5 mg PO Q6H PRN PRN Reason: Pain (moderate 4-6) Assessment/Plan Comment:: Patient is a 61-year-old female with a history of hemorrhagic stroke status post surgical treatment and Covid positive who presented to the ER due to more frequent seizure disorder episodes and dizziness. Seizure disorder have been having seizure since 8-9 years old, s/p surgical treatment in 1995 More frequent seizures lately Had a diagnosis of [place] seizures in the past CT of the head on April 15 -negative for acute change. MRI brain and MRA brain on April 19-no acute change. On Lamictal wth therapeutic at 12 on 04/[address] Donald Gilbert at [facility]. Neurologist Dr. Dr. Álvarez at [facility] is in [place] who is covering for Dr. Donald Gilbert was consulted in the ER, recommending Lamictal 250mg in the am and 300mg in the evening Monitor in tele seizure precaution Dizziness Etiology unknown, could result from Covid infection Has been having dizziness since covid 19 infection about 2 weeks ago Had one episode of dizziness (vertigo) [address] of the head on April 15 -negative for acute change. MRI brain and MRA brain on April 19-no acute change. May order meclizine for her if needed PT OT Covid 19 infection had positive Covid 19 12 days ago Chest x-ray on April 19 showed slight increased density on both sides of the chest. Will repeat CXR On RM with good oxygen saturation Passed remdesivir treatment window I would not like to initiate steroid and baricitinib for her Prophylaxis Lovenox now. Would start her on therapeutic Lovenox if D-dimer is positive D-dimer Hemoglobin A1c CK CBC, CMP, and CRP daily in morning Inhalers Self care deficit/unsteady gait PT OT UTI Ceftriaxone 1 g IV daily DVT prophylaxis: Lovenox CODE STATUS: Full (discussed with daughter Becky who agreed to have both CPR and intubation) - Mortality Measure Prognosis:: Poor
[2021-04-24] MEDS ORDERED: hydrALAZINE 20 MG/ML SDV IVPUSH PRN (17:58)
--- NOTE | 2021-04-24 18:39 | CR ---
Chest: Frontal view of the chest was obtained. Comparison: Previous chest x-ray of 04/19/21. Lung parenchyma shows improvement from prior study although mild residual increased lung markings remain. Heart size and mediastinum are within normal limits. Bony structures show nothing acute. Impression: 1. Mild increased lung markings are noted with findings being improved from prior study. Diagnostic code #2
[2021-04-24] MEDS: Enoxaparin 40 MG/0.4 ML Syringe SUBCUT SCH (18:42)
[2021-04-24] MEDS: Cholecalciferol (Vitamin D3) 5,000 UNIT Cap PO SCH (18:42)
[2021-04-24] MEDS: Lactated Ringers 1,000 ML IV SCH (18:43)
[2021-04-24] MEDS: cefTRIAXone 1 GM in Sodium Chloride 0.9% 100 ML IV SCH (18:43)
[2021-04-24] MEDS: lamoTRIgine 100 MG Tab PO SCH (20:08)
[2021-04-25 07:33] LABS: HEMOGLOBIN A1C 5.5 %
[2021-04-25] MEDS: Cholecalciferol (Vitamin D3) 5,000 UNIT Cap PO SCH (08:27)
[2021-04-25] MEDS: Multivitamin Tab PO SCH (08:27)
[2021-04-25] MEDS: lamoTRIgine 100 MG Tab PO SCH ×2 (08:28→21:33)
[2021-04-25] MEDS: Enoxaparin 40 MG/0.4 ML Syringe SUBCUT SCH (08:29)
[2021-04-25] MEDS: Lactated Ringers 1,000 ML IV SCH (14:27)
[2021-04-25] MEDS: cefTRIAXone 1 GM in Sodium Chloride 0.9% 100 ML IV SCH (16:27)
--- NOTE | 2021-04-25 17:18 | PCM.PN ---
- General Info Date of Service: 04/25/21 Admission Dx/Problem (Free Text): Admission Diagnosis/Problem Admission Diagnosis/Problem Weakness Subjective Update: Patient is a 61-year-old female with a history of hemorrhagic stroke status post surgical treatment and Covid positive who presented to the ER due to more frequent seizure disorder episodes and dizziness. Patient complains of dizziness this morning. She was working with physical therapy just prior to my arrival. Also she did have her Lamictal increased this morning. Functional Status: Reports: Pain Controlled - Review of Systems General: Reports: Fatigue HEENT: Reports: Other (Vertigo) Pulmonary: Reports: No Symptoms Cardiovascular: Reports: No Symptoms Gastrointestinal: Reports: No Symptoms Musculoskeletal: Reports: No Symptoms - Patient Data Vitals - Most Recent: Last Vital Signs Temp 98.2 F 04/25/21 14:45 Pulse 66 04/25/21 14:45 Resp 18 04/25/21 14:45 BP 115/71 04/25/21 14:44 Pulse Ox 94 L 04/25/21 14:45 Weight - Most Recent: 196 lb 9.6 oz I&O - Last 24 Hours: Intake & Output 04/25/21 04/25/21 04/25/21 06:59 14:59 22:59 Intake Total 950 0 1510 Output Total 300 1800 Balance 650 0 -290 Lab Results Last 24 Hours: Laboratory Results - last 24 hr 04/24/21 04/25/21 04/25/21 Range/Units 16:25 06:19 06:19 WBC 7.09 (3.98-10.04) K/mm3 RBC 4.77 (3.98-5.22) M/mm3 Hgb 14.2 (11.2-15.7) gm/dl Hct 44.0 (34.1-44.9) % MCV 92.2 (79.4-94.8) fl MCH 29.8 (25.6-32.2) pg MCHC 32.3 (32.2-35.5) g/dl RDW Std Deviation 44.3 (36.4-46.3) fL Plt Count 286 (182-369) K/mm3 MPV 9.3 L (9.4-12.3) fl Neut % (Auto) 59.9 (34.0-71.1) % Lymph % (Auto) 24.4 (19.3-51.7) % Chaves % (Auto) 9.2 (4.7-12.5) % Eos % (Auto) 5.1 (0.7-5.8) Baso % (Auto) 0.7 (0.1-1.2) % Neut # (Auto) 4.25 (1.56-6.13) K/mm3 Lymph # (Auto) 1.73 (1.18-3.74) K/mm3 Chaves # (Auto) 0.65 H (0.24-0.36) K/mm3 Eos # (Auto) 0.36 (0.04-0.36) K/mm3 Baso # (Auto) 0.05 (0.01-0.08) K/mm3 Manual Slide Review Normal smear Sodium 140 (136-145) mEq/L Potassium 3.9 (3.5-5.1) mEq/L Chloride 103 (98-107) mEq/L Carbon Dioxide 28 (21-32) mEq/L Anion Gap 12.9 (5-15) BUN 12 (7-18) mg/dL Creatinine 0.8 (0.55-1.02) mg/dL Est Cr Clr Drug Dosing 59.54 mL/min Estimated GFR (MDRD) > 60 (>60) mL/min BUN/Creatinine Ratio 15.0 (14-18) Glucose 110 H (70-99) mg/dL Hemoglobin A1c ( - 5.6) % Calcium 8.8 (8.5-10.1) mg/dL Phosphorus 3.7 (2.6-4.7) mg/dL Magnesium 1.9 (1.8-2.4) mg/dL Total Bilirubin 0.5 (0.2-1.0) mg/dL AST 20 (15-37) U/L ALT 35 (14-59) U/L Alkaline Phosphatase 77 (46-116) U/L Creatine Kinase 54 (26-192) U/L Troponin I < 0.017 (0.00-0.056) ng/mL C-Reactive Protein < 0.2 (<1.0) mg/dL Total Protein 7.0 (6.4-8.2) g/dl Albumin 3.2 L (3.4-5.0) g/dl Globulin 3.8 gm/dL Albumin/Globulin Ratio 0.8 L (1-2) 04/25/21 Range/Units 06:19 WBC (3.98-10.04) K/mm3 RBC (3.98-5.22) M/mm3 Hgb (11.2-15.7) gm/dl Hct (34.1-44.9) % MCV (79.4-94.8) fl MCH (25.6-32.2) pg MCHC (32.2-35.5) g/dl RDW Std Deviation (36.4-46.3) fL Plt Count (182-369) K/mm3 MPV (9.4-12.3) fl Neut % (Auto) (34.0-71.1) % Lymph % (Auto) (19.3-51.7) % Chaves % (Auto) (4.7-12.5) % Eos % (Auto) (0.7-5.8) Baso % (Auto) (0.1-1.2) % Neut # (Auto) (1.56-6.13) K/mm3 Lymph # (Auto) (1.18-3.74) K/mm3 Chaves # (Auto) (0.24-0.36) K/mm3 Eos # (Auto) (0.04-0.36) K/mm3 Baso # (Auto) (0.01-0.08) K/mm3 Manual Slide Review Sodium (136-145) mEq/L Potassium (3.5-5.1) mEq/L Chloride (98-107) mEq/L Carbon Dioxide (21-32) mEq/L Anion Gap (5-15) BUN (7-18) mg/dL Creatinine (0.55-1.02) mg/dL Est Cr Clr Drug Dosing mL/min Estimated GFR (MDRD) (>60) mL/min BUN/Creatinine Ratio (14-18) Glucose (70-99) mg/dL Hemoglobin A1c 5.5 ( - 5.6) % Calcium (8.5-10.1) mg/dL Phosphorus (2.6-4.7) mg/dL Magnesium (1.8-2.4) mg/dL Total Bilirubin (0.2-1.0) mg/dL AST (15-37) U/L ALT (14-59) U/L Alkaline Phosphatase (46-116) U/L Creatine Kinase (26-192) U/L Troponin I (0.00-0.056) ng/mL C-Reactive Protein (<1.0) mg/dL Total Protein (6.4-8.2) g/dl Albumin (3.4-5.0) g/dl Globulin gm/dL Albumin/Globulin Ratio (1-2) Joey Results Last 24 Hours: Microbiology 04/22/21 11:00 Urine Culture - Final Urine Escherichia Coli Med Orders - Current: Current Medications Acetaminophen (Acetaminophen 325 Mg Tab) 650 mg PO Q6H PRN PRN Reason: Pain (Mild 1-3)/fever Albuterol/Ipratropium (Albuterol/Ipratropium 3.0-0.5 Mg/3 Ml Neb Soln) 3 ml NEB Q4H PRN PRN Reason: Shortness Of Breath/wheezing Cholecalciferol (Cholecalciferol (Vitamin D3) 5,000 Unit Cap) 5,000 unit PO DAILY [facility] Last Admin: 04/25/21 08:27 Dose: 5,000 unit Documented by: Enoxaparin Sodium (Enoxaparin 40 Mg/0.4 Ml Syringe) 40 mg SUBCUT DAILY [facility] Last Admin: 04/25/21 08:29 Dose: 40 mg Documented by: Hydralazine HCl (Hydralazine 20 Mg/Ml Sdv) 10 mg IVPUSH Q4H PRN PRN Reason: Hypertension Promethazine HCl 12.5 mg/ (Sodium Chloride) 50.5 mls @ 100 mls/hr IV Q6H PRN PRN Reason: Nausea/Vomiting Ceftriaxone Sodium 1 gm/ (Sodium Chloride) 100 mls @ 200 mls/hr IV Q24H [facility] Stop: 04/25/21 20:00 Last Admin: 04/25/21 16:27 Dose: 200 mls/hr Documented by: Lactated Ringer's (Ringers, Lactated) 1,000 mls @ 50 mls/hr IV ASDIRECTED [facility] Last Admin: 04/25/21 14:27 Dose: 50 mls/hr Documented by: Lamotrigine (Lamotrigine 100 Mg Tab) 300 mg PO DAILY@2100 [facility] Last Admin: 04/24/21 20:08 Dose: 300 mg Documented by: Lamotrigine (Lamotrigine 100 Mg Tab) 250 mg PO DAILY [facility] Last Admin: 04/25/21 08:28 Dose: 250 mg Documented by: Multivitamins/Minerals/Vitamin C (Multivitamin Tab) 1 tab PO DAILY [facility] Last Admin: 04/25/21 08:27 Dose: 1 tab Documented by: Oxycodone HCl (Oxycodone 5 Mg Tab) 5 mg PO Q6H PRN PRN Reason: Pain (moderate 4-6) Discontinued Medications Cefdinir (Cefdinir 300 Mg Cap) 300 mg PO ONETIME ONE Stop: 04/22/21 11:23 Last Admin: 04/22/21 12:49 Dose: 300 mg Documented by: Cefdinir (Cefdinir 300 Mg Cap) 300 mg PO ONETIME ONE Stop: 04/23/21 07:38 Last Admin: 04/23/21 07:56 Dose: 300 mg Documented by: Cefdinir (Cefdinir 300 Mg Cap) 300 mg PO BID [facility] Last Admin: 04/24/21 09:57 Dose: 300 mg Documented by: Diazepam (Diazepam 2 Mg Tab) 1 mg PO ONETIME ONE Stop: 04/22/21 18:45 Last Admin: 04/22/21 20:11 Dose: 1 mg Documented by: Lactated Ringer's (Ringers, Lactated) 500 mls @ 999 mls/hr IV .BOLUS ONE Stop: 04/22/21 08:37 Last Admin: 04/22/21 08:15 Dose: 999 mls/hr Documented by: Lactated Ringer's (Ringers, Lactated) 1,000 mls @ 125 mls/hr IV ASDIRECTED [facility] Last Admin: 04/23/21 07:55 Dose: 125 mls/hr Documented by: Potassium Chloride 10 meq/ (Premix) 100 mls @ 100 mls/hr IV Q1H [facility] Stop: 04/22/21 15:29 Last Admin: 04/22/21 16:15 Dose: 100 mls/hr Documented by: Influenza Virus Vaccine (Flu Vacc [id number] 36mos Up/Pf 60 Mcg/0.5 Ml Syringe) 60 mcg IM .ONCE ONE Stop: 04/24/21 16:31 Lamotrigine (Lamotrigine 100 Mg Tab) 300 mg PO ONETIME ONE Stop: 04/22/21 18:43 Last Admin: 04/22/21 20:11 Dose: 300 mg Documented by: Lamotrigine (Lamotrigine 100 Mg Tab) 250 mg PO ONETIME ONE Stop: 04/23/21 10:52 Last Admin: 04/23/21 12:00 Dose: 250 mg Documented by: Lamotrigine (Lamotrigine 100 Mg Tab) 300 mg PO DAILY ONE Stop: 04/23/21 20:01 Last Admin: 04/23/21 20:04 Dose: 300 mg Documented by: Lamotrigine (Lamotrigine 100 Mg Tab) 200 mg PO ONETIME ONE Stop: 04/24/21 11:12 Last Admin: 04/24/21 11:20 Dose: 200 mg Documented by: Lorazepam (Lorazepam 2 Mg/Ml Sdv) 2 mg IVPUSH ONETIME ONE Stop: 04/22/21 07:59 Last Admin: 04/22/21 08:03 Dose: 2 mg Documented by: Morphine Sulfate (Morphine 2 Mg/Ml Syringe) 2 mg IVPUSH Q4H PRN PRN Reason: Pain (severe 7-10) Stop: 04/25/21 16:49 Ondansetron HCl (Ondansetron 4 Mg/2 Ml Sdv) 4 mg IVPUSH ONETIME ONE Stop: 04/22/21 08:04 Last Admin: 04/22/21 08:06 Dose: 4 mg Documented by: Potassium Chloride (Potassium Chloride 20 Meq Tab.Er) 40 meq PO ONETIME ONE Stop: 04/22/21 11:19 Last Admin: 04/22/21 12:42 Dose: 40 meq Documented by: - Exam Quality Assessment: No: Supplemental Oxygen General: Alert, Oriented HEENT: Pupils Equal, Mucous Membr. Moist/[place] Neck: Supple Lungs: Clear to Auscultation, Normal Respiratory Effort Cardiovascular: Regular Rate, Regular Rhythm GI/Abdominal Exam: Normal Bowel Sounds, No Distention Extremities: Normal Inspection, Normal Range of Motion, Non-Tender, No Pedal Edema, Normal Capillary Refill - Patient Data Lab Results Last 24 hrs: Laboratory Results - last 24 hr 04/24/21 04/25/21 04/25/21 Range/Units 16:25 06:19 06:19 WBC 7.09 (3.98-10.04) K/mm3 RBC 4.77 (3.98-5.22) M/mm3 Hgb 14.2 (11.2-15.7) gm/dl Hct 44.0 (34.1-44.9) % MCV 92.2 (79.4-94.8) fl MCH 29.8 (25.6-32.2) pg MCHC 32.3 (32.2-35.5) g/dl RDW Std Deviation 44.3 (36.4-46.3) fL Plt Count 286 (182-369) K/mm3 MPV 9.3 L (9.4-12.3) fl Neut % (Auto) 59.9 (34.0-71.1) % Lymph % (Auto) 24.4 (19.3-51.7) % Chaves % (Auto) 9.2 (4.7-12.5) % Eos % (Auto) 5.1 (0.7-5.8) Baso % (Auto) 0.7 (0.1-1.2) % Neut # (Auto) 4.25 (1.56-6.13) K/mm3 Lymph # (Auto) 1.73 (1.18-3.74) K/mm3 Chaves # (Auto) 0.65 H (0.24-0.36) K/mm3 Eos # (Auto) 0.36 (0.04-0.36) K/mm3 Baso # (Auto) 0.05 (0.01-0.08) K/mm3 Manual Slide Review Normal smear Sodium 140 (136-145) mEq/L Potassium 3.9 (3.5-5.1) mEq/L Chloride 103 (98-107) mEq/L Carbon Dioxide 28 (21-32) mEq/L Anion Gap 12.9 (5-15) BUN 12 (7-18) mg/dL Creatinine 0.8 (0.55-1.02) mg/dL Est Cr Clr Drug Dosing 59.54 mL/min Estimated GFR (MDRD) > 60 (>60) mL/min BUN/Creatinine Ratio 15.0 (14-18) Glucose 110 H (70-99) mg/dL Hemoglobin A1c ( - 5.6) % Calcium 8.8 (8.5-10.1) mg/dL Phosphorus 3.7 (2.6-4.7) mg/dL Magnesium 1.9 (1.8-2.4) mg/dL Total Bilirubin 0.5 (0.2-1.0) mg/dL AST 20 (15-37) U/L ALT 35 (14-59) U/L Alkaline Phosphatase 77 (46-116) U/L Creatine Kinase 54 (26-192) U/L Troponin I < 0.017 (0.00-0.056) ng/mL C-Reactive Protein < 0.2 (<1.0) mg/dL Total Protein 7.0 (6.4-8.2) g/dl Albumin 3.2 L (3.4-5.0) g/dl Globulin 3.8 gm/dL Albumin/Globulin Ratio 0.8 L (1-2) 04/25/21 Range/Units 06:19 WBC (3.98-10.04) K/mm3 RBC (3.98-5.22) M/mm3 Hgb (11.2-15.7) gm/dl Hct (34.1-44.9) % MCV (79.4-94.8) fl MCH (25.6-32.2) pg MCHC (32.2-35.5) g/dl RDW Std Deviation (36.4-46.3) fL Plt Count (182-369) K/mm3 MPV (9.4-12.3) fl Neut % (Auto) (34.0-71.1) % Lymph % (Auto) (19.3-51.7) % Chaves % (Auto) (4.7-12.5) % Eos % (Auto) (0.7-5.8) Baso % (Auto) (0.1-1.2) % Neut # (Auto) (1.56-6.13) K/mm3 Lymph # (Auto) (1.18-3.74) K/mm3 Chaves # (Auto) (0.24-0.36) K/mm3 Eos # (Auto) (0.04-0.36) K/mm3 Baso # (Auto) (0.01-0.08) K/mm3 Manual Slide Review Sodium (136-145) mEq/L Potassium (3.5-5.1) mEq/L Chloride (98-107) mEq/L Carbon Dioxide (21-32) mEq/L Anion Gap (5-15) BUN (7-18) mg/dL Creatinine (0.55-1.02) mg/dL Est Cr Clr Drug Dosing mL/min Estimated GFR (MDRD) (>60) mL/min BUN/Creatinine Ratio (14-18) Glucose (70-99) mg/dL Hemoglobin A1c 5.5 ( - 5.6) % Calcium (8.5-10.1) mg/dL Phosphorus (2.6-4.7) mg/dL Magnesium (1.8-2.4) mg/dL Total Bilirubin (0.2-1.0) mg/dL AST (15-37) U/L ALT (14-59) U/L Alkaline Phosphatase (46-116) U/L Creatine Kinase (26-192) U/L Troponin I (0.00-0.056) ng/mL C-Reactive Protein (<1.0) mg/dL Total Protein (6.4-8.2) g/dl Albumin (3.4-5.0) g/dl Globulin gm/dL Albumin/Globulin Ratio (1-2) Result Diagrams: 04/25/21 06:19 04/25/21 06:19 Joey Results Last 24 hrs: Microbiology 04/22/21 11:00 Urine Culture - Final Urine Escherichia Coli Sepsis Event Note - Evaluation Sepsis Screening Result: No Definite Risk - Focused Exam Vital Signs: Vital Signs Temp Pulse Resp BP Pulse Ox Pulse Ox 04/25/21 14:45 98.2 F 66 18 94 L 04/25/21 14:44 69 115/71 94 L 04/25/21 11:23 97.3 F 68 20 111/54 L 96 04/25/21 08:53 96 04/25/21 08:14 97.5 F 57 L 18 103/75 96 - Problem List & Annotations (1) COVID-19 SNOMED Code(s): 353996013 Code(s): U07.1 - COVID-19 Status: Acute Current Visit: Yes (2) Urinary tract infection SNOMED Code(s): 65003573 Code(s): N39.0 - URINARY TRACT INFECTION, SITE NOT SPECIFIED Status: Acute Current Visit: Yes Qualifiers: Urinary tract infection type: site unspecified Hematuria presence: without hematuria Qualified Code(s): N39.0 - Urinary tract infection, site not specified (3) Vertigo SNOMED Code(s): 443036498 Code(s): R42 - DIZZINESS AND GIDDINESS Status: Acute Current Visit: Yes (4) Breakthrough seizure SNOMED Code(s): 562156746 Code(s): G40.919 - EPILEPSY, UNSP, INTRACTABLE, WITHOUT STATUS EPILEPTICUS Status: Acute Current Visit: No - Problem List Review Problem List Initiated/Reviewed/Updated: Yes - My Orders Last 24 Hours: My Active Orders 04/25/21 11:13 Admission Status [Patient Status] [ADT] Routine - Plan Plan:: Patient is a 61-year-old female with a history of hemorrhagic stroke status post surgical treatment and Covid positive who presented to the ER due to more frequent seizure disorder episodes and dizziness. Seizure disorder have been having seizure since 8-9 years old, s/p surgical treatment in 1995 More frequent seizures lately Had a diagnosis of [place] seizures in the past CT of the head on April 15 -negative for acute change. MRI brain and MRA brain on April 19-no acute change. On Lamictal wth therapeutic at 12 on 04/[address] Donald Gilbert at [facility]. Neurologist Dr. Dr. Álvarez at [facility] in [place] who is covering for Dr. Donald Gilbert was consulted in the ER, recommending Lamictal 250mg in the am and 300mg in the evening - started Monitor in tele seizure precaution PT/OT recommend SNF Dizziness Etiology unknown, could result from Covid infection Has been having dizziness since covid 19 infection about 2 weeks ago Had one episode of dizziness (vertigo) [address] of the head on April 15 -negative for acute change. MRI brain and MRA brain on April 19-no acute change. May order meclizine for her if needed PT OT recommend SNF Covid 19 infection had positive Covid 19 12 days ago Chest x-ray on April 19 showed slight increased density on both sides of the chest. Will repeat CXR On with good oxygen saturation Passed remdesivir treatment window I would not like to initiate steroid and baricitinib for her Prophylaxis Lovenox now. Would start her on therapeutic Lovenox if D-dimer is positive D-dimer Hemoglobin A1c CK CBC, CMP, and CRP daily in morning Inhalers Self care deficit/unsteady gait PT OT UTI Ceftriaxone 1 g IV daily. Culture E. coli pansensitive DVT prophylaxis: Lovenox CODE STATUS: Full (discussed with daughter Becky who agreed to have both CPR and intubation)
[2021-04-26] MEDS: Enoxaparin 40 MG/0.4 ML Syringe SUBCUT SCH (09:00)
[2021-04-26] MEDS: Cholecalciferol (Vitamin D3) 5,000 UNIT Cap PO SCH (09:00)
[2021-04-26] MEDS: lamoTRIgine 100 MG Tab PO SCH (09:00)
[2021-04-26] MEDS: Multivitamin Tab PO SCH (09:00)
--- NOTE | 2021-04-26 10:37 | PCM.DCSUM1 ---
Discharge Summary - Hospital Course HPI Initial Comments: Patient is a 61-year-old female with seizure disorder status post surgical treatment and Covid positive who presented to the ER due to more frequent seizure disorder episodes and dizziness. As per ER physician, patient had a hemorrhagic stroke 3 years ago but family denies this. Pt has been having seizure disorder since 8-8 years old for which she underwent surgical treatment in 1995. After the surgery, she had less frequent seizure episodes. She has bee n having more frequent seizure episodes lately. She has a her on neurologist outside. She got a Covid 19 infection about 12 days ago. Since that , she has been having dizziness. She had one episode of dizziness (vertigo) 2 years ago. She complains of nausea and vomiting. She has an unsteady gait and weak too. So patient is unable to discharge home from the ER. Because no bed available, patient has been staying in the ER for almost 2 days. In the ER, CT of the head on April 15 -negative for acute change. MRI brain and MRA brain on April 19-no acute change. Urinalysis compatible with UTI. Assessment/Plan Comment:: Patient is a 61-year-old female with a history of hemorrhagic stroke status post surgical treatment and Covid positive who presented to the ER due to more frequent seizure disorder episodes and dizziness. Seizure disorder have been having seizure since 8-7 years old, s/p surgical treatment in 1995 More frequent seizures lately Had a diagnosis of petit mall seizures in the past CT of the head on April 15 -negative for acute change. MRI brain and MRA brain on April 19-no acute change. On Lamictal wth therapeutic at 12 04/[address] Donald Gilbert at [facility]. Neurologist Dr. Dr. Álvarez at [facility] in [place] who is covering for Dr. Donald Gilbert was consulted in the ER, recommending Lamictal 250mg in the am and 300mg in the evening Monitor in tele seizure precaution Dizziness Etiology unknown, could result from Covid infection Has been having dizziness since covid 19 infection about 2 weeks ago Had one episode of dizziness (vertigo) [address] of the head on April 15 -negative for acute change. MRI brain and MRA brain on April 19-no acute change. May order meclizine for her if needed PT OT Covid 19 infection had positive Covid 19 12 days ago Chest x-ray on April 19 showed slight increased density on both sides of the chest. Will repeat CXR On RM with good oxygen saturation Passed remdesivir treatment window I would not like to initiate steroid and baricitinib for her Prophylaxis Lovenox now. Would start her on therapeutic Lovenox if D-dimer is positive D-dimer Hemoglobin A1c CK CBC, CMP, and CRP daily in morning Inhalers Self care deficit/unsteady gait PT OT UTI Ceftriaxone 1 g IV daily DVT prophylaxis: Lovenox CODE STATUS: Full (discussed with daughter Becky who agreed to have both CPR and intubation) - Mortality Measure Prognosis:: Poor Diagnosis: Stroke: No - Discharge Data Discharge Date: 04/26/21 Discharge Disposition: Home, Self-Care 01 Condition: Good - Referral to Home Health Primary Care Physician: Livia Hernandez MD - Discharge Diagnosis/Problem(s) (1) COVID-19 SNOMED Code(s): 476005202 ICD Code: U07.1 - COVID-19 Status: Acute Current Visit: Yes (2) Urinary tract infection SNOMED Code(s): 83360454 ICD Code: N39.0 - URINARY TRACT INFECTION, SITE NOT SPECIFIED Status: Acute Current Visit: Yes Qualifiers: Urinary tract infection type: site unspecified Hematuria presence: without hematuria Qualified Code(s): N39.0 - Urinary tract infection, site not specified (3) Vertigo SNOMED Code(s): 230533956 ICD Code: R42 - DIZZINESS AND GIDDINESS Status: Acute Current Visit: Yes (4) Breakthrough seizure SNOMED Code(s): 460258735 ICD Code: G40.919 - EPILEPSY, UNSP, INTRACTABLE, WITHOUT STATUS EPILEPTICUS Status: Acute Current Visit: No - Patient Summary/Data Consults: Consultations 04/24/21 13:51 Consult to Physical Therapy [PT Evaluation and Treatment] [CONS] Routine 04/24/21 16:45 OT Evaluation and Treatment [CONS] Routine Hospital Course: 04/25/2021 Patient is a 61-year-old female with a history of hemorrhagic stroke status post surgical treatment and Covid positive who presented to the ER due to more frequent seizure disorder episodes and dizziness. Seizure disorder have been having seizure since 8-9 years old, s/p surgical treatment in 1995 More frequent seizures lately Had a diagnosis of petit mall seizures in the past CT of the head on April 15 -negative for acute change. MRI brain and MRA brain on April 19-no acute change. On Lamictal wth therapeutic at 12 on 04/[address] Donald Gilbert at [facility]. Neurologist Dr. Dr. Álvarez at [facility] is in [place] who is covering for Dr. Donald Gilbert was consulted in the ER, recommending Lamictal 250mg in the am and 300mg in the evening - started Monitor in tele seizure precaution PT/OT recommend SNF Dizziness Etiology unknown, could result from Covid infection Has been having dizziness since covid 19 infection about 2 weeks ago Had one episode of dizziness (vertigo) [address] of the head on April 15 -negative for acute change. MRI brain and MRA brain on April 19-no acute change. May order meclizine for her if needed PT OT recommend SNF Covid 19 infection had positive Covid 19 12 days ago Chest x-ray on April 19 showed slight increased density on both sides of the chest. Will repeat CXR On with good oxygen saturation Passed remdesivir treatment window I would not like to initiate steroid and baricitinib for her Prophylaxis Lovenox now. Would start her on therapeutic Lovenox if D-dimer is positive D-dimer Hemoglobin A1c CK CBC, CMP, and CRP daily in morning Inhalers Self care deficit/unsteady gait PT OT UTI Ceftriaxone 1 g IV daily. Culture E. coli pansensitive DVT prophylaxis: Lovenox CODE STATUS: Full (discussed with daughter Becky who agreed to have both CPR and intubation) 04/26/2021 Patient is doing much better. She is no longer dizzy and has not had any seizure since hospitalization. She is ready for discharge. She will follow up with her primary care provider. - Patient Instructions Diet: Usual Diet as Tolerated Activity: As Tolerated Driving: Do Not Drive Showering/Bathing: May Shower Other/Special Instructions: Follow up with PCP next week. Please get a recheck of your Lamictal levels checked. - Discharge Plan *PRESCRIPTION DRUG MONITORING PROGRAM REVIEWED*: No *COPY OF PRESCRIPTION DRUG MONITORING REPORT IN PATIENT SIA: No Prescriptions/Med Rec: lamoTRIgine 250 mg PO DAILY #75 tablet lamoTRIgine 300 mg PO DAILY@2100 #90 tablet Home Medications: Home Meds Cholecalciferol (Vitamin D3) [Vitamin D3] 5,000 unit PO DAILY 04/24/21 [History] Multivit with Calcium,Iron,Min [One Daily Women's] 1 tab PO DAILY 04/24/21 [History] lamoTRIgine 250 mg PO DAILY #75 tablet 04/26/21 [Rx] lamoTRIgine 300 mg PO DAILY@2100 #90 tablet 04/26/21 [Rx] Forms: ED Department Discharge Referrals: Livia Hernandez MD [Primary Care Provider] - 05/02/21 2:00 pm (Please arrive at 1:40 to check in for your appt. at 2:00) - Discharge Summary/Plan Comment DC Time >30 min.: Yes Total # of Minutes for Discharge Time: 35 minutes - General Info Date of Service: 04/26/21 Admission Dx/Problem (Free Text: Admission Diagnosis/Problem Admission Diagnosis/Problem Weakness Subjective Update: Patient is doing well without any dizziness. She states that she is ready to go home. PT has cleared her for discharge home with outpatient physical therapy. Functional Status: Reports: Pain Controlled - Review of Systems General: Reports: No Symptoms HEENT: Reports: No Symptoms Pulmonary: Reports: No Symptoms Cardiovascular: Reports: No Symptoms Gastrointestinal: Reports: No Symptoms Musculoskeletal: Reports: No Symptoms Neurological: Reports: No Symptoms - Patient Data Vitals - Most Recent: Last Vital Signs Temp 97.0 F 04/26/21 09:41 Pulse 67 04/26/21 09:41 Resp 20 04/26/21 09:41 BP 110/82 04/26/21 09:41 Pulse Ox 97 04/26/21 09:41 Weight - Most Recent: 198 lb 4.8 oz I&O - Last 24 hours: Intake & Output 04/25/21 04/26/21 04/26/21 22:59 06:59 14:59 Intake Total 2127 300 Output Total 1800 600 Balance 327 -300 Lab Results - Last 24 hrs: Laboratory Results - last 24 hr 04/26/21 04/26/21 Range/Units 05:48 05:48 WBC 7.09 (3.98-10.04) K/mm3 RBC 4.65 (3.98-5.22) M/mm3 Hgb 13.9 (11.2-15.7) gm/dl Hct 43.1 (34.1-44.9) % MCV 92.7 (79.4-94.8) fl MCH 29.9 (25.6-32.2) pg MCHC 32.3 (32.2-35.5) g/dl RDW Std Deviation 44.2 (36.4-46.3) fL Plt Count 265 (182-369) K/mm3 MPV 9.3 L (9.4-12.3) fl Neut % (Auto) 56.9 (34.0-71.1) % Lymph % (Auto) 28.6 (19.3-51.7) % [place] % (Auto) 7.9 (4.7-12.5) % Eos % (Auto) 5.2 (0.7-5.8) Baso % (Auto) 1.0 (0.1-1.2) % Neut # (Auto) 4.03 (1.56-6.13) K/mm3 Lymph # (Auto) 2.03 (1.18-3.74) K/mm3 [place] # (Auto) 0.56 H (0.24-0.36) K/mm3 Eos # (Auto) 0.37 H (0.04-0.36) K/mm3 Baso # (Auto) 0.07 (0.01-0.08) K/mm3 Sodium 137 (136-145) mEq/L Potassium 3.8 (3.5-5.1) mEq/L Chloride 103 (98-107) mEq/L Carbon Dioxide 29 (21-32) mEq/L Anion Gap 8.8 (5-15) BUN 17 (7-18) mg/dL Creatinine 0.8 (0.55-1.02) mg/dL Est Cr Clr Drug Dosing 59.54 mL/min Estimated GFR (MDRD) > 60 (>60) mL/min BUN/Creatinine Ratio 21.3 H (14-18) Glucose 103 H (70-99) mg/dL Calcium 8.8 (8.5-10.1) mg/dL Total Bilirubin 0.4 (0.2-1.0) mg/dL AST 16 (15-37) U/L ALT 31 (14-59) U/L Alkaline Phosphatase 76 (46-116) U/L C-Reactive Protein < 0.2 (<1.0) mg/dL Total Protein 7.0 (6.4-8.2) g/dl Albumin 3.3 L (3.4-5.0) g/dl Globulin 3.7 gm/dL Albumin/Globulin Ratio 0.9 L (1-2) Med Orders - Current: Current Medications Acetaminophen (Acetaminophen 325 Mg Tab) 650 mg PO Q6H PRN PRN Reason: Pain (Mild 1-3)/fever Albuterol/Ipratropium (Albuterol/Ipratropium 3.0-0.5 Mg/3 Ml Neb Soln) 3 ml NEB Q4H PRN PRN Reason: Shortness Of Breath/wheezing Cholecalciferol (Cholecalciferol (Vitamin D3) 5,000 Unit Cap) 5,000 unit PO DAILY [facility] Last Admin: 04/26/21 09:00 Dose: 5,000 unit Documented by: Enoxaparin Sodium (Enoxaparin 40 Mg/0.4 Ml Syringe) 40 mg SUBCUT DAILY [facility] Last Admin: 04/26/21 09:00 Dose: 40 mg Documented by: Hydralazine HCl (Hydralazine 20 Mg/Ml Sdv) 10 mg IVPUSH Q4H PRN PRN Reason: Hypertension Promethazine HCl 12.5 mg/ (Sodium Chloride) 50.5 mls @ 100 mls/hr IV Q6H PRN PRN Reason: Nausea/Vomiting Lamotrigine (Lamotrigine 100 Mg Tab) 300 mg PO DAILY@2100 [facility] Last Admin: 04/25/21 21:33 Dose: 300 mg Documented by: Lamotrigine (Lamotrigine 100 Mg Tab) 250 mg PO DAILY [facility] Last Admin: 04/26/21 09:00 Dose: 250 mg Documented by: Multivitamins/Minerals/Vitamin C (Multivitamin Tab) 1 tab PO DAILY [facility] Last Admin: 04/26/21 09:00 Dose: 1 tab Documented by: Oxycodone HCl (Oxycodone 5 Mg Tab) 5 mg PO Q6H PRN PRN Reason: Pain (moderate 4-6) Discontinued Medications Cefdinir (Cefdinir 300 Mg Cap) 300 mg PO ONETIME ONE Stop: 04/22/21 11:23 Last Admin: 04/22/21 12:49 Dose: 300 mg Documented by: Cefdinir (Cefdinir 300 Mg Cap) 300 mg PO ONETIME ONE Stop: 04/23/21 07:38 Last Admin: 04/23/21 07:56 Dose: 300 mg Documented by: Cefdinir (Cefdinir 300 Mg Cap) 300 mg PO BID [facility] Last Admin: 04/24/21 09:57 Dose: 300 mg Documented by: Diazepam (Diazepam 2 Mg Tab) 1 mg PO ONETIME ONE Stop: 04/22/21 18:45 Last Admin: 04/22/21 20:11 Dose: 1 mg Documented by: Lactated Ringer's (Ringers, Lactated) 500 mls @ 999 mls/hr IV .BOLUS ONE Stop: 04/22/21 08:37 Last Admin: 04/22/21 08:15 Dose: 999 mls/hr Documented by: Lactated Ringer's (Ringers, Lactated) 1,000 mls @ 125 mls/hr IV ASDIRECTED [facility] Last Admin: 04/23/21 07:55 Dose: 125 mls/hr Documented by: Potassium Chloride 10 meq/ (Premix) 100 mls @ 100 mls/hr IV Q1H SHA Stop: 04/22/21 15:29 Last Admin: 04/22/21 16:15 Dose: 100 mls/hr Documented by: Ceftriaxone Sodium 1 gm/ (Sodium Chloride) 100 mls @ 200 mls/hr IV Q24H [facility] Stop: 04/25/21 20:00 Last Admin: 04/25/21 16:27 Dose: 200 mls/hr Documented by: Lactated Ringer's (Ringers, Lactated) 1,000 mls @ 50 mls/hr IV ASDIRECTED [facility] Last Admin: 04/25/21 14:27 Dose: 50 mls/hr Documented by: Influenza Virus Vaccine (Flu Vacc [id number] 36mos Up/Pf 60 Mcg/0.5 Ml Syringe) 60 mcg IM .ONCE ONE Stop: 04/24/21 16:31 Lamotrigine (Lamotrigine 100 Mg Tab) 300 mg PO ONETIME ONE Stop: 04/22/21 18:43 Last Admin: 04/22/21 20:11 Dose: 300 mg Documented by: Lamotrigine (Lamotrigine 100 Mg Tab) 250 mg PO ONETIME ONE Stop: 04/23/21 10:52 Last Admin: 04/23/21 12:00 Dose: 250 mg Documented by: Lamotrigine (Lamotrigine 100 Mg Tab) 300 mg PO DAILY ONE Stop: 04/23/21 20:01 Last Admin: 04/23/21 20:04 Dose: 300 mg Documented by: Lamotrigine (Lamotrigine 100 Mg Tab) 200 mg PO ONETIME ONE Stop: 04/24/21 11:12 Last Admin: 04/24/21 11:20 Dose: 200 mg Documented by: Lorazepam (Lorazepam 2 Mg/Ml Sdv) 2 mg IVPUSH ONETIME ONE Stop: 04/22/21 07:59 Last Admin: 04/22/21 08:03 Dose: 2 mg Documented by: Morphine Sulfate (Morphine 2 Mg/Ml Syringe) 2 mg IVPUSH Q4H PRN PRN Reason: Pain (severe 7-10) Stop: 04/25/21 16:49 Ondansetron HCl (Ondansetron 4 Mg/2 Ml Sdv) 4 mg IVPUSH ONETIME ONE Stop: 04/22/21 08:04 Last Admin: 04/22/21 08:06 Dose: 4 mg Documented by: Potassium Chloride (Potassium Chloride 20 Meq Tab.Er) 40 meq PO ONETIME ONE Stop: 04/22/21 11:19 Last Admin: 04/22/21 12:42 Dose: 40 meq Documented by: - Exam Quality Assessment: Denies: Supplemental Oxygen General: Reports: Alert, Oriented HEENT: Reports: Pupils Equal, Mucous Membr. Moist/[place] Neck: Reports: Supple Lungs: Reports: Clear to Auscultation, Normal Respiratory Effort Cardiovascular: Reports: Regular Rate, Regular Rhythm GI/Abdominal Exam: Normal Bowel Sounds, Soft, Non-Tender, No Distention, No Abnormal Bruit Extremities: Normal Inspection, No Pedal Edema Skin: Reports: Warm, Dry, Intact Psy/Mental Status: Reports: Alert, Normal Affect, Normal Mood
[2021-04-26] MEDS ORDERED: FLU Vacc QS2021-22 36MOS UP/PF 60 MCG/0.5 ML Syringe IM ONE (13:45)
== END 2021-04-26 13:50 | disposition home or self-care (01) | DRG 100 ==
LOC: SUPCPDRO 07:36 → JD.ED 07:36 → INTOOBSV 04-24 15:51 → JD.MS 04-24 15:51 → OBSVTOIN 04-25 11:13
PROVIDERS: ADMIT Internal Medicine; ATTEND Family Medicine
DX: G40.909 Epilepsy, unspecified, not intractable, without status epilepticus (principal); U07.1 COVID-19; N39.0 Urinary tract infection, site not specified; G40.919 Epilepsy, unspecified, intractable, without status epilepticus; H54.7 Unspecified visual loss; K21.9 Gastro-esophageal reflux disease without esophagitis; B96.20 Unspecified Escherichia coli [E. coli] as the cause of diseases classified elsewhere; Z88.5 Allergy status to narcotic agent; Z88.8 Allergy status to other drugs, medicaments and biological substances; Z79.899 Other long term (current) drug therapy; Z86.73 Personal history of transient ischemic attack (TIA), and cerebral infarction without residual deficits; Z23 Encounter for immunization
CPT/HCPCS: 36415; 71045; 71045-26; 80048; 80053; 81001; 82550; 83036; 83735; 84100; 84484; 85025; 86140; 87040; 87086; 87088; 87186; 90686; 94762; 96365; 96366; 96367; 96372; 96375; 97110-GP; 99285-25; A9270-GY; G0008; G0378; J0696; J1650; J2060; J2405; J3480; J7120

== ENCOUNTER 2022-02-22 10:16 | Emergency (ER) | payer OTHER | END 2022-02-22 14:15 | disposition home or self-care (01) | LOC: JD.ED 10:16 | DX: M19.072 Primary osteoarthritis, left ankle and foot (principal); Z88.5 Allergy status to narcotic agent; Z88.8 Allergy status to other drugs, medicaments and biological substances; Z86.16 Personal history of COVID-19 | CPT/HCPCS: 73630-26-LT; 73630-LT; 99283 ==

== ENCOUNTER 2022-07-01 08:43 | Emergency (ER) | payer OTHER ==
[2022-07-01] MEDS ORDERED: Acetaminophen/HYDROcodone 325-5 MG Tab PO ONE (10:39)
[2022-07-01] MEDS ORDERED: Naproxen 500 MG Tab PO ONE (10:49)
== END 2022-07-01 15:37 | disposition home or self-care (01) ==
LOC: JD.ED 08:43
DX: S22.31XA Fracture of one rib, right side, initial encounter for closed fracture (principal); K76.89 Other specified diseases of liver; R91.1 Solitary pulmonary nodule; Z88.5 Allergy status to narcotic agent; Z88.8 Allergy status to other drugs, medicaments and biological substances; Z86.16 Personal history of COVID-19; W00.0XXA Fall on same level due to ice and snow, initial encounter
CPT/HCPCS: 71250; 71250-26; 99285; A9270-GY

== ENCOUNTER 2022-07-06 04:18 | Emergency (ER) | payer OTHER ==
[2022-07-06] MEDS ORDERED: Morphine 4 MG/ML Syringe IVPUSH ONE (04:42)
[2022-07-06] MEDS ORDERED: Ondansetron 4 MG/2 ML SDV IVPUSH ONE (04:42)
[2022-07-06] MEDS ORDERED: Sodium Chloride 0.9% 1,000 ML IV ONE (04:42)
[2022-07-06] MEDS ORDERED: HYDROmorphone 0.5 MG/0.5 ML Syringe IVPUSH ONE (05:25)
== END 2022-07-06 06:45 | disposition home or self-care (01) ==
LOC: JD.ED 04:18
DX: S22.32XA Fracture of one rib, left side, initial encounter for closed fracture (principal); S32.019A Unspecified fracture of first lumbar vertebra, initial encounter for closed fracture; S32.029A Unspecified fracture of second lumbar vertebra, initial encounter for closed fracture; I44.0 Atrioventricular block, first degree; M25.511 Pain in right shoulder; M25.521 Pain in right elbow; R51.9 Headache, unspecified; R56.9 Unspecified convulsions; Z79.899 Other long term (current) drug therapy; Z86.16 Personal history of COVID-19; Z88.5 Allergy status to narcotic agent; Z88.8 Allergy status to other drugs, medicaments and biological substances; W00.0XXA Fall on same level due to ice and snow, initial encounter
CPT/HCPCS: 70450; 72125; 72128; 72131; 72190; 73030; 73080; 93005; 96361; 96374; 96375; 99284; J1170; J2405; J7030

== ENCOUNTER 2024-09-16 14:30 | Emergency (ER) | payer OTHER ==
[2024-09-16 15:52] LABS: BASOPHILS ABSOLUTE AUTO 0.1 K/mm3 (0.0-0.2); EOSINOPHILS ABSOLUTE AUTO 0.2 K/mm3 (0.0-0.4); EOSINOPHILS PERCENT AUTO 2.3 % (0.0-6.0); HEMATOCRIT 45.5 % (37.0-47.0); HEMOGLOBIN 14.8 gm/dl (12.0-16.0); IMMATURE GRAN ABSOLUTE AUTO 0.05 K/mm3 (0.00-0.05); IMMATURE GRAN PERCENT AUTO 0.6 % (0.0-0.4); LYMPHOCYTES ABSOLUTE AUTO 1.9 K/mm3 (1.0-4.8); LYMPHOCYTES PERCENT AUTO 21.1 % (24.0-44.0); MEAN CORPUSCULAR HEMOGLOBIN 29.8 pg (28.0-32.0); MEAN CORPUSCULAR HGB CONC 32.5 g/dl (32.0-36.0); MEAN CORPUSCULAR VOLUME 91.7 fl (83.0-99.0); MEAN PLATELET VOLUME 9.5 fl (9.4-12.3); MONOCYTES ABSOLUTE AUTO 0.6 K/mm3 (0.0-0.8); MONOCYTES PERCENT AUTO 6.1 % (0.0-8.0); NEUTROPHILS ABSOLUTE AUTO 6.3 K/mm3 (1.8-7.7); NEUTROPHILS PERCENT AUTO 68.9 % (41.0-71.0); PLATELET COUNT,PLT 224 K/mm3 (150-400); RED BLOOD CELL COUNT 4.96 M/mm3 (4.10-5.30); WHITE BLOOD CELL COUNT,WBC 9.09 K/mm3 (3.9-11.3)
[2024-09-16 16:08] LABS: INR 1.07; PROTHROMBIN TIME 11.3 SECONDS (9.7-12.0)
[2024-09-16 16:13] LABS: A/G RATIO 0.9 (1-2); ALBUMIN 3.6 g/dl (3.4-5.0); ANION GAP 14.5 (5-15); BILIRUBIN TOTAL 0.4 mg/dL (0.2-1.0); BUN/CREATININE RATIO 24.3 (14-18); CREATININE 0.7 mg/dL (0.55-1.02); EST CRCL DRUG DOSING (CG) 65.4 mL/min; MAGNESIUM 1.8 mg/dL (1.8-2.4); POTASSIUM,K 3.5 mEq/L (3.5-5.1); PROTEIN TOTAL,TP 7.6 g/dl (6.4-8.2)
[2024-09-16 17:06] LABS: BARBITURATE SCREEN,URINE NEGATIVE (CUTOFF=200); BENZODIAZEPINES SCREEN,URINE NEGATIVE (CUTOFF=150); BUPRENORPHINE SCREEN,URINE NEGATIVE (CUTOFF=10); METHADONE SCREEN, URINE NEGATIVE (CUTOFF=200); METHAMPHETAMINES SCREEN, URINE NEGATIVE (CUTOFF=500); OXYCODONE SCREEN,URINE NEGATIVE (CUT0FF=100); THC SCREEN,URINE 20 NG/ML NEGATIVE (CUTOFF=50)
[2024-09-16 17:08] LABS: AMPHETAMINES SCREEN, URINE NEGATIVE (CUTOFF=500)
[2024-09-16] MEDS: Sodium Chloride 0.9% 1,000 ML IV ONE (17:38)
[2024-09-16] MEDS: Ondansetron 4 MG/2 ML SDV IVPUSH ONE (17:38)
[2024-09-16] MEDS: Acetaminophen 325 MG Tab PO ONE (17:39)
== END 2024-09-16 18:46 | disposition home or self-care (01) ==
LOC: JD.ED 14:30
DX: R07.89 Other chest pain (principal); Z86.16 Personal history of COVID-19; Z88.5 Allergy status to narcotic agent; Z88.8 Allergy status to other drugs, medicaments and biological substances; Z79.899 Other long term (current) drug therapy
CPT/HCPCS: 36415; 71045; 71045-26; 80053; 80306; 82550; 83690; 83735; 83880; 84484; 85025; 85610; 87428-QW; 93005; 96374; 99283; 99285-25; A9270-GY; J2405; J7030

== ENCOUNTER 2024-10-27 07:36 | Day surgery (SDC) | payer OTHER ==
[2024-10-27] MEDS: Phenylephrine 2.5% Ophth Soln 2 ML Bot EYERT SCH (08:32)
[2024-10-27] MEDS: Tetracaine HCl/PF 0.5% 4 ML Bottle EYEBOTH SCH (08:33)
[2024-10-27] MEDS: Polymyxin B/Trimethoprim 10 ML Bottle EYERT SCH (08:33)
[2024-10-27] MEDS: Lidocaine 1% PF 2 ML SDV INJECT SCH (08:33)
[2024-10-27] MEDS: Brimonidine 0.2% Ophth Soln 5 ML Bottle EYERT SCH (08:34)
[2024-10-27] MEDS: Pilocarpine 4% Ophth Soln 15 ML Bot EYERT SCH (08:35)
[2024-10-27] MEDS: Cefuroxime 10 MG/ML SYRINGE EYERT SCH (08:35)
[2024-10-27] MEDS: Tropicamide 1% Ophth Soln 3 ML Bottle EYERT SCH (08:53)
== END 2024-10-27 10:03 ==
LOC: JD.SDS 07:36
PROVIDERS: ATTEND Ophthalmology
DX: H26.9 Unspecified cataract (principal); K21.9 Gastro-esophageal reflux disease without esophagitis; Z79.899 Other long term (current) drug therapy
CPT/HCPCS: 66984; A9270; J0697; J3490; V2632

== ENCOUNTER 2024-11-24 12:21 | Day surgery (SDC) | payer OTHER ==
[2024-11-24] MEDS: Tetracaine HCl/PF 0.5% 4 ML Bottle EYEBOTH SCH (07:37)
[2024-11-24] MEDS: Phenylephrine 2.5% Ophth Soln 2 ML Bot EYELF SCH (07:37)
[2024-11-24] MEDS: Cefuroxime 10 MG/ML SYRINGE EYELF SCH (07:37)
[2024-11-24] MEDS: Pilocarpine 4% Ophth Soln 15 ML Bot EYELF SCH (07:37)
[2024-11-24] MEDS: Lidocaine 1% PF 2 ML SDV INJECT SCH (07:37)
[2024-11-24] MEDS: Brimonidine 0.2% Ophth Soln 5 ML Bottle EYELF SCH (07:38)
[2024-11-24] MEDS: Polymyxin B/Trimethoprim 10 ML Bottle EYELF SCH (07:38)
[2024-11-24] MEDS: Tropicamide 1% Ophth Soln 15 ML Bottle EYELF SCH (13:08)
== END 2024-11-24 15:01 ==
LOC: JD.SDS 12:21
PROVIDERS: ATTEND Ophthalmology
DX: H25.812 Combined forms of age-related cataract, left eye (principal); H52.31 Anisometropia; K21.9 Gastro-esophageal reflux disease without esophagitis; Z79.899 Other long term (current) drug therapy; Z88.5 Allergy status to narcotic agent
CPT/HCPCS: 66984; J0697; J3490